=== PATIENT | female | born 1990 | race Caucasian/White ===

== ENCOUNTER 2024-08-04 19:59 | Emergency (ER) | payer OTHER, SELFPAY ==
--- NOTE | ~2024-08-04 | US_ITS ---
CLINICAL HISTORY: Abdominal pain, DUB, left lower pelvic pain US pelvis transabdominal and transvaginal with Doppler Comparison: None Findings: Transabdominal scanning performed for overall anatomy. Transvaginal scanning performed for additional detail. Anteverted uterus is 10.5 cm length. Normal myometrium. Endometrium 11 mm thickness. Right ovary 2.8 x 1.0 x 1.4 cm. Corresponds to a volume of 2.1 mL. Left ovary 2.0 x 1.0 x 2.1 cm., corresponds to a volume of 2.2 mL. History of left fallopian tube removal. Normal color Doppler with arterial/venous spectral tracing of both ovaries. No free fluid. IMPRESSION: 1. Unremarkable pelvic ultrasound with no evidence of ovarian torsion. This document has been electronically signed by: Blanca Brink MD on 08/04/2024 22:58:19
[2024-08-04 20:02] VITALS: BP 141/83; PULSE 85; RESP 18; TEMP 36.5; O2SAT 98; BMI 39.9
--- NOTE | 2024-08-04 20:09 | ED_ITS ---
HPI - General Adult General Chief complaint: Vaginal Bleeding Stated complaint: Back and abdominal pain Time Seen by Provider: 08/04/24 21:03 History of Present Illness ED Provider: Dr. Patel HPI narrative: 34 y/o F patient; without significant PMH; presents from home reporting abnormal uterine bleeding. The patient states she finished her menstrual cycle 07/26. The cycle had started approx 4 days earlier than expected. This morning she started with vaginal spotting that got heavier throughout the day. Associated with a lower abdominal/back pain. The patient tried Advil and a hot bath for symptom management at home. She is concerned that she feels like she is almost passing out due to her symptoms. She otherwise denies: fever or chills, chest pain, SOB, cough/congestion, diarrhea. She states her menstrual cycle is usually on time and lasts 4 - 5 days. She denies recent weight loss. She does report increased stress from loss of her job approx 1 week ago. Related Data Allergies Allergy/AdvReac Type Severity Reaction Status Date / Time ethinyl estradiol Allergy Shortness Verified 08/04/24 20:06 [From Norethin 1/35E (21)] of Breath norethindrone Allergy Shortness Verified 08/04/24 20:06 [From Norethin 1/35E (21)] of Breath Review of Systems 2 Review of Systems: Yes all other systems are reviewed and are negative PMFSH Past Medical History Attestation statement: The following information was validated with the patient. Source: old records reviewed Physical Exam ED Vital Signs: Vital Signs - 24 hr 08/04/24 20:02 08/04/24 20:30 08/04/24 22:00 Temperature 97.7 F 98.1 F 97.9 F Pulse Rate 85 84 74 Respiratory Rate 18 16 16 Blood Pressure 141/83 H 141/81 H 110/65 Pulse Oximetry 98 99 95 Oxygen Delivery Method Room Air Room Air Room Air 08/04/24 23:43 08/04/24 23:46 Temperature 97.9 F 97.9 F Pulse Rate 72 72 Respiratory Rate 16 16 Blood Pressure 118/83 118/83 Pulse Oximetry 98 98 Oxygen Delivery Method Room Air Room Air BMI result Body Mass Index 39.9 Patient is afebrile and hemodynamically stable. Const General: cooperative and no acute distress HENMT Head: Yes normal to inspection and Yes atraumatic Eyes General: appearance normal, both eyes and all related structures Pupils: Equal, round and reactive pupils present EOM: EOMs intact bilaterally Neck Neck: Yes normal visual inspection, Yes full ROM, Yes supple and No tender Chest Chest palpation & inspection: normal inspection of the chest and normal palpation of entire chest wall Resp Effort & Inspection: normal respiratory effort, able to speak in complete sentences, no cough and no respiratory distress Auscultation: clear to auscultation bilaterally Cardio Rate: regular rate Rhythm: regular rhythm Peripheral pulses: Peripheral pulses 2+ throughout GI Inspection: Yes normal to inspection, No Abdominal wall edema and No distended Palpation (GI): Soft to palpation, not firm, nontender, no guarding and not rigid Auscultation: normal bowel sounds Back/Spine/Pelvis Back: No back tenderness Neuro Cranial nerves: Yes Equal, round and reactive pupils present Course Course Course Narrative: RME: 34-year-old female presents to ED for lower abdominal pain, back pain, and vaginal spotting. Patient states her. Finish couple of days ago now she is bleeding again. Patient has history of ectopic . Labs UA ordered Reevaluation(s) Reevaluation #1: Patient is afebrile and hemodynamically stable. Reviewed triage work up and added US Pelvis. Labs reviewed. No leukocytosis or significant anemia. Beta Hcg negative. UA without evidence of cystitis. US Pelvis unremarkable for acute abnormalities. Received Toradol 30mg IM for pain control. Recommended patient follow up with her OBGYN on Monday for a routine appointment. Recommended high dose ibuprofen for the next 72 hours to help with bleeding control. Plan: Discharge to home with OBGYN follow up Return precautions given Medications Administered Discontinued Medications Generic Name Dose Route Start Last Admin Trade Name Freq PRN Reason Stop Dose Admin Ketorolac Tromethamine 30 mg 08/04/24 21:04 08/04/24 21:13 Ketorolac Tromethamine 30 Mg/Ml Vial IM 08/04/24 21:05 30 mg ONCE ONE Administration Medical Decision Making Lab Data 08/04/24 20:16 08/04/24 20:16 Labs: Lab Results 08/04/24 08/04/24 Range/Units 20:16 20:19 WBC 6.9 (4.8-10.8) X10*3/uL RBC 4.88 (4.20-5.50) X10*6/uL Hgb 13.0 (12.0-16.0) g/dl Hct 39.3 (37.0-47.0) % MCV 80.5 (80.0-98.0) fL MCH 26.6 L (27.0-33.0) pg MCHC 33.1 (31.0-35.0) g/dl RDW 14.1 (11.0-16.0) % Plt Count 343 (160-400) X10*3/uL MPV 9.4 (9.4-12.3) fL Immature Gran % (Auto) 0.1 (0.0-0.4) % Neut % (Auto) 61.3 (45-73) % Lymph % (Auto) 30.6 (20-40) % [place] % (Auto) 6.6 (2-11) % Eos % (Auto) 1.0 (0-4) % Baso % (Auto) 0.4 (0-2) % Lymph # (Auto) 2.1 (1.2-4.9) X10*3/uL [place] # (Auto) 0.5 (0.1-1.2) X10*3/uL Eos # (Auto) 0.1 (0.0-0.4) X10*3/uL Baso # (Auto) 0.0 (0.0-0.2) X10*3/uL Abs Immat Gran (auto) 0.01 (0.00-0.03) X10*3/uL Absolute Neuts (auto) 4.2 (2.0-8.3) x10*3/uL Absolute Nucleated RBC 0.000 (0.0-0.012) X10*3/uL Nucleated RBC % (auto) 0.0 (0.0-0.2) /100WBC PT 10.9 (10.9-12.4) SEC INR 0.9 (0.9-1.1) APTT 28.4 (26.0-36.8) SEC Sodium 140 (135-145) mmol/L Potassium 4.0 (3.3-5.1) mmol/L Chloride 103 (96-108) mmol/L Carbon Dioxide 27 (22-29) mmol/L Anion Gap 14 (12-20) BUN 11 (9-16) mg/dL Creatinine 0.74 (0.5-1.4) mg/dL Estim Creat Clear Calc 128.9 Estimated GFR > 60 Random Glucose 164 H (60-115) mg/dL Calcium 9.3 (8.4-10.2) mg/dL Total Bilirubin 0.4 (0.0-1.0) mg/dL AST 29 (5-31) U/L ALT 23 (0-31) U/L Alkaline Phosphatase 93 (39-117) U/L Total Protein 7.2 (6.5-8.0) g/dL Albumin 4.1 (3.5-5.0) g/dL Beta HCG, Quant 12 mIU/mL Urine Color Yellow Urine Appearance Clear Urine pH 6.0 (5.0-9.0) Ur Specific [place] 1.020 (1.005-1.025) Urine Protein Negative (Neg-Trace) mg/dL Urine Glucose (UA) Negative (Negative) mg/dL Urine Ketones Negative (Negative) mg/dL Urine Blood Large (3+) H (Negative) Urine Nitrite Negative (Negative) Ur Leukocyte Esterase Negative (Negative) Urine RBC >20 H (0-2) /HPF Urine WBC 0-5 (0-5) /HPF Ur Squamous Epith Cells 0-2 (0-2) /HPF Urine Bacteria None Seen (None Seen) Hyaline Casts 0-2 (0-2) /LPF Urine Test NEGATIVE (NEGATIVE) Radiology Impression Discussion of test interpretation with radiology: I have reviewed the radiologist's reading. Radiologist Impression: CLINICAL HISTORY: Abdominal pain, DUB, left lower pelvic pain US pelvis transabdominal and transvaginal with Doppler Comparison: None Findings: Transabdominal scanning performed for overall anatomy. Transvaginal scanning performed for additional detail. Anteverted uterus is 10.5 cm length. Normal myometrium. Endometrium 11 mm thickness. Right ovary 2.8 x 1.0 x 1.4 cm. Corresponds to a volume of 2.1 mL. Left ovary 2.0 x 1.0 x 2.1 cm., corresponds to a volume of 2.2 mL. History of left fallopian tube removal. Normal color Doppler with arterial/venous spectral tracing of both ovaries. No free fluid. IMPRESSION: 1. Unremarkable pelvic ultrasound with no evidence of ovarian torsion. This document has been electronically signed by: Blanca Brink MD on 08/04/2024 22:58:19 Discharge Plan Discharge Clinical Impression: Dysfunctional uterine bleeding Patient Disposition: Home, Self-Care Instructions: Dysfunctional Uterine Bleeding (ED) Additional Instructions: As we discussed, you were seen in the emergency department today for dysfunctional uterine bleeding. Your lab work and US Pelvis were reassuring. We discussed taking ibuprofen 600mg every 6 hours for the next 72 hours. Making sure to eat 30min prior to taking the medication to prevent stomach ulcers. This should help to decrease the severity of the bleeding and cramping. Please call your primary doctor and OBGYN on Monday to discuss your recent emergency department visit and for re-evaluation. Interventions: ED Discharge Assessment Last Done: 08/04/24 23:46 Discharge Date/Time: 08/04/24 23:47 Print Language: Japanese
[2024-08-04 20:20] LABS: MANUAL DIFF FLAG NO
[2024-08-04 20:21] LABS: Basophils Percent Auto 0.4 % (0-2); Eosinophils Absolute Auto 0.1 X10*3/uL (0.0-0.4); Hematocrit 39.3 % (37.0-47.0); Imm Gran Abs Auto 0.01 X10*3/uL (0.00-0.03); Imm Gran Pct Auto 0.1 % (0.0-0.4); Lymphocytes Absolute Auto 2.1 X10*3/uL (1.2-4.9); Lymphocytes Percent Auto 30.6 % (20-40); Mean Corpuscular HGB Conc 33.1 g/dl (31.0-35.0); Mean Corpuscular Hemoglobin 26.6 pg (27.0-33.0); Mean Corpuscular Volume 80.5 fL (80.0-98.0); Mean Platelet Volume 9.4 fL (9.4-12.3); Monocytes Absolute Auto 0.5 X10*3/uL (0.1-1.2); Monocytes Percent Auto 6.6 % (2-11); Neutrophils Absolute Auto 4.2 x10*3/uL (2.0-8.3); Neutrophils Percent Auto 61.3 % (45-73); Platelet Count 343 X10*3/uL (160-400); Red Blood Count 4.88 X10*6/uL (4.20-5.50); Red Cell Distribution Width 14.1 % (11.0-16.0); White Blood Count 6.9 X10*3/uL (4.8-10.8)
[2024-08-04 20:26] LABS: UPreg QC Valid YES; Urine Pregnancy NEGATIVE (NEGATIVE)
[2024-08-04 20:27] LABS: Appearance Urine Clear; Color Urine Yellow; Glucose Urine UA Negative (Negative); Leukocyte Esterase Urine Negative (Negative); Nitrite Urine Negative (Negative); UMIC TRIGGER UACC YES; Urine Blood Large (3+) (Negative); Urine Ketones Negative (Negative); Urine Protein Negative (Neg-Trace)
[2024-08-04 20:28] LABS: INTERNATIONAL NORM RATIO 0.9 (0.9-1.1); Prothrombin Time 10.9 SEC (10.9-12.4)
--- OUTSIDE RECORDS SUMMARY | 2024-08-04 20:28 | XMS_ITS | Patient Health Record ---
Author Organization [facility], [facility] Address [address] [place] [address] Care Team Providers Care Loadmaster Name Role Phone Huey Marin Primary Care Provider Unavail able Blaise Palacio Unavailable [phone] Allergies No Known Allergies Results Component Value Reference Range Notes MR-Brain (C-/C+) CPT 07575 Reviewed date:08/22/2023 12:50:56 PM Interpretation: Performing Lab: Notes/Report: [facility] Accession Number: [id number] Patient Name: Mindy Luz Date of : 1990 Date of Exam: 08-21-2023 Referring Physician: Blaise Palacio [facility], [address], [address] [place], [place] [address] Exam: MR Brain (C-/C+) CPT 96513 Room Description: [facility] 3T EXAMINATION: MRI brain without and with contrast PHARMACEUTICAL: 0.1 mmol/kg of Gadolinium administered intravenously. TECHNIQUE: Multiplanar and multisequence MRI of brain performed without and with intravenous administration of gadolinium. Sequences obtained include: Axial: T2 with fat suppression, FLAIR, DWI with ADC mapping, T1 and GRE/susceptibility images. Sagittal: T1 Postgadolinium sequences: Axial 3D gradient T1, Coronal T1 CLINICAL INFORMATION: Lightheadedness COMPARISON: CT 01/24/2023 FINDINGS: Brain parenchyma is normal in signal intensity. No abnormal parenchymal or meningeal enhancement. There is no acute infarct, hemorrhage, mass effect or midline shift. Ventricles and extra-axial spaces are proportionate and age appropriate. Craniocervical junction, sellar/parasellar structures and bilateral orbits are within normal limits. Scattered trace paranasal sinus mucosal thickening. Bilateral mastoid air cells are essentially clear. IMPRESSION: No acute intracranial abnormality. No abnormal intracranial enhancement. If this radiology report contains a blank impression section, it is an incomplete radiology report. Please contact the interpreting radiologist or applicable radiology division as soon as possible to obtain the completed interpretation. Workstation ID: [id number] Electronically Signed By: Vidya Villanueva MD [facility] Accession Number: [id number] Patient Name: Mindy Luz Date of : 1990 Date of Exam: 08-21-2023 Referring Physician: Blaise Palacio [facility], [address], [place] [address] Exam: MR Brain (C-/C+) CPT 64954 Room Description: [facility] 3T EXAMINATION: MRI brain without an d with contrast PHARMACEUTICAL: 0.1 mmol/kg of Gadol inium administered intravenously. TECHNIQUE: Multiplanar and mult isequence MRI of brain performed without and with intravenous administ ration of gadolinium. Sequences obtained include: Axial: T2 with fat s uppression, FLAIR, DWI with ADC mapping, T1 and GRE/susceptibility images. Sagittal: T1 Postgadolinium seque nces: Axial 3D gradient T1, Coronal T1 CLINICAL INFORMATION: Lightheadedness COMPARISON: CT 01/24/2023 FINDINGS: Brain parenchyma is normal in signal intensity. No abnormal parenchymal or meningeal enhancement. There is no acute in farct, hemorrhage, mass effect or midline shift. Ventricles and extra -axial spaces are proportionate and age appropriate. Craniocervical junct ion, sellar/parasellar structures and bilateral orbits are within normal limits. Scattered trace para nasal sinus mucosal thickening. Bilateral mastoid air cells are essentially clear. IMPRESSION: No acute intracrania l abnormality. No abnormal intracranial enhancement. If this radiology re port contains a blank impression section, it is an incomplete radiology report. Please contact the interpreting radiologist or applicable radiology division as soon as possible to obtain the completed interpretation. Workstation ID: [id number] Electronically Roxanna d By: Vidya Villanueva MD Reason For Referral No Information Medications Medication SIG (Take, Route, Frequency, Duration) Notes Start Date End Date Status metFORMIN HCl 500 MG 1 tablet with a deanne l Orally Once a day Active Multivitamin - 1 tablet Orally Once a day Active Famotidine 20 MG Oral for 15 Days Active Lisinopril 5 MG 1/2 tablet Oral Once a day for 90 days Active Atorvastatin Calcium 20 MG 1 tablet Orally Once a day Not-Taking Problems Problem Type SNOMED Code ICD Code Onset Dates Problem Status W/U Status Risk Notes Problem Type II diabetes mellitus without complication (235300506) Diabetes (E11.9) Active confirmed Problem Hypertension (40980347) Hypertension (I10) Active confirmed Problem Hyperlipidemia (01182376) Hyperlipidemia (E78.5) Active confirmed Problem [id number] Episodic migrain e (G43.909) Active confirmed Vital Signs Heart Rate 86 /min 08/28/2023 Oximetry 98 % 08/28/2023 Blood pressure diastolic 70 mm Hg 08/28/2023 Height 65 in 08/28/2023 Blood pressure systolic 106 mm Hg 08/28/2023 Weight 234 lbs 08/28/2023 BMI 38.94 kg/m2 08/28/2023 Encounters Encounter Location Date Provider Diagnosis [address] [address] 08/28/2023 Blaise Naveedagmusa Episodic lightheadedness R42 and Episodic migraine G43.909 Assessments Encounter Date Diagnosis (ICD Code) Assessment Notes Treatment Notes Treatment Clinical Notes Section Notes 08/28/2023 Episodic lightheadedness (ICD-10 - R42) 33-year-old right-handed woman with a past medical history of hypertension, hyperlipidemia, diabetes mellitus presenting for neurology evaluation for episodes of lightheadedness, feeling off and heart palpitations. Neurologic exam is reassuring with no focal neurologic deficits. Differential diagnosis for these episodes should include focal seizure activity. However, the fact that she believes her palpitations were noted on a heart monitor during emergency department visit would argue slightly more for a cardiac etiology. I am glad that she is planning on continued cardiac evaluation for these episodes. For evaluation of potential neurologic cause an MRI brain was performed with no intracranial abnormalities and an EEG was performed with no epileptiform discharges or electrographic seizures. She was encouraged to continue to follow with cardiology and if she has captured events on her heart monitor and is deemed to not be due to a cardiac etiology we could continue further evaluation for potential seizure activity. She also complained of some menstrual migraines which been ongoing for the last few months and getting worse. I provided her with information on [id number] supplements which can be helpful for migraine. If this is not efficient and she would like to discuss prescription medications for migraine and I will be happy to see her in clinic in the near future. All questions were answered the patient's satisfaction. 08/28/2023 Episodic migraine (ICD-10 - G43.909) 33-year-old right-handed woman with a past medical history of hypertension, hyperlipidemia, diabetes mellitus presenting for neurology evaluation for episodes of lightheadedness, feeling off and heart palpitations. Neurologic exam is reassuring with no focal neurologic deficits. Differential diagnosis for these episodes should include focal seizure activity. However, the fact that she believes her palpitations were noted on a heart monitor during emergency department visit would argue slightly more for a cardiac etiology. I am glad that she is planning on continued cardiac evaluation for these episodes. For evaluation of potential neurologic cause an MRI brain was performed with no intracranial abnormalities and an EEG was performed with no epileptiform discharges or electrographic seizures. She was encouraged to continue to follow with cardiology and if she has captured events on her heart monitor and is deemed to not be due to a cardiac etiology we could continue further evaluation for potential seizure activity. She also complained of some menstrual migraines which been ongoing for the last few months and getting worse. I provided her with information on [id number] supplements which can be helpful for migraine. If this is not efficient and she would like to discuss prescription medications for migraine and I will be happy to see her in clinic in the near future. All questions were answered the patient's satisfaction. Plan Of Treatment No Information Insurance Providers Payer Name Payer Address Payer Phone Subscriber Number Group Number Insured Name Patient Relationship to Insured Coverage Start Date Coverage End Date [facility] [address] [place] [phone] [id number] Mindy Luz Self - patient is the insured Medical (General) History Medical History History ICD Code Hypertension I10 Hyperlipidemia E78.5 Diabetes E11.9 Surgical History Surgery Date(Month/Year) (2) Hospitalization History Reason Date(Month/Year) Internal Bleeding Kidney Stones Child
--- OUTSIDE RECORDS SUMMARY | 2024-08-04 20:29 | XMS_ITS ---
Author Organization [email or web address] Address [address] [address] Care Team Providers Care Ore Charger Name Role Phone Huey Marin Primary Care Provider Unavail able Kofi Palacioin Unavailable [phone] Allergies No Known Allergies Results Component Value Reference Range Notes Basic Metabolic Panel [phone] Reviewed date:07/03/2023 08:48:33 AM Interpretation: Performing Lab: Notes/Report: Electroencephalography (EEG) Reviewed date:07/03/2023 09:53:17 AM Interpretation: Performing Lab: Notes/Report: MR-Brain (C-/C+) CPT 55165 Reviewed date:07/04/2023 11:44:48 AM Interpretation: Performing Lab: Notes/Report: 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 Medications Medication SIG (Take, Route, Frequency, Duration) Notes Start Date End Date Status Famotidine 20 MG Oral for 15 Days Active Lisinopril 5 MG Oral for 90 Days Active Atorvastatin Calcium 20 MG 1 tablet Oral ly Once a day Active metFORMIN HCl 500 MG 1 tablet with a deanne l Orally Once a day Active Problems Problem Type SNOMED Code ICD Code Onset Dates Problem Status W/U Status Risk Notes Problem Hypertension (47150029) Hypertension (I10) Active confirmed Problem Hyperlipidemia (07623370) Hyperlipidemia (E78.5) Active confirmed Problem Type II diabetes mellitus without complication (197974393) Diabetes (E11.9) Active confirmed Vital Signs Blood pressure systolic 124 mm Hg 07/03/19 24 Blood pressure diastolic 84 mm Hg 024 Heart Rate 85 /min 07/03/2023 Height 65 in 07/03/2023 Weight 239 lbs 07/03/2023 BMI 39.77 kg/m2 07/03/2023 Oximetry 98 % 07/03/2023 Encounters Encounter Location Date Provider Diagnosis [address] [address] 07/03/2023 Blaise Palacio Episodic lightheadedness R42 Assessments Encounter Date Diagnosis (ICD Code) Assessment Notes Treatment Notes Treatment Clinical Notes Section Notes 07/03/2023 Episodic lightheadedness (ICD-10 - R42) 33-year-old right-handed [...] episodes. For evaluation of potential neurologic cause we discussed the benefits of pursuing an MRI brain with contrast and EEG for potential seizure activity. She agreed to this and both tests were ordered today. Will plan to follow-up in clinic in approximately 2 months to review the results of testing. A basic metabolic panel was also offered today to evaluate her kidney function prior to receiving contrast. All questions were answered the patient's satisfaction. 07/03/2023 Other 33-year-old right-handed woman with a past medical [...] episodes. For evaluation of potential neurologic cause we discussed the benefits of pursuing an MRI brain with contrast and EEG for potential seizure activity. She agreed to this and both tests were ordered today. Will plan to follow-up in clinic in approximately 2 months to review the results of testing. A basic metabolic panel was also offered today to evaluate her kidney function prior to receiving contrast. All questions were answered the patient's satisfaction. 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 She has been having sensations of her heart skipping a beat and not feeling herself.? Start wtih her feeling super off and like she is going to pass out.? Associated palpitation with floaters in her vision- brightly colored specks in her vision. Lasts a minute or two, but she will feel off for a total of 10-20 minutes.? Afterwards she will feel completely exhausted.? ?Happening once and then typically does not reoccur the same day.? Estimates that the feeling of her heart skipping a beat 4 days a week.? The Off feeling is happening almost every day.? Wondering if it is related to her blood sugars- she has been monitoring her blood sugars at home and they have been varying a lot.? Ranging 110-145 in the morning and can go as low as the low 80's during the day.? No other associated focal neurologic symptoms- no diplopia, slurred speech, focal weakness, numbness, tinging, urinary incontinence, fecal incontinence or tongue bite.? She was evaluated by cardiology including a 1 week holter monitor.? No other cardiac tests have been performed.? Seen in the emergency room for these symptoms with normal EKG, negative d-dimer, and negative troponin.? She tells me that in the emergency room her telemetry did show her palpitations. * ROS:?ROS negative or non-contributory with the exception of what is expressely stated in the HPI above. * Medical History:? * Surgical History:? (2) * Hospitalization/Major Diagno stic Procedure:?Child Kidney Stones Internal Bleeding * Family History:?Father: diab etes, hyperlipedemia, hypertension.?Mother: anxiety.? * Social History:?Drugs/Alcohol:?Caffeine?Intake:?none.?Do you smoke marijuana?: Denies. Do you drink alcohol?: No. ???Non-Smoker. * Medications:?TakingmetFORMIN HCl 500 MG Tablet 1 tablet with a meal Orally Once a day Atorvastatin Calcium 20 MG Tablet 1 tablet Orally Once a day Lisinopril 5 MG Tablet Oral Famotidine 20 MG Tablet Oral Medication List reviewed and reconciled with the patientTaking metFORMIN HCl 500 MG Tablet 1 tablet with a meal Orally Once a day Taking Atorvastatin Calcium 20 MG Tablet 1 tablet Orally Once a day Taking Lisinopril 5 MG Tablet Oral Taking Famotidine 20 MG Tablet Oral Medication List reviewed and reconciled with the patient * Allergies:?N.K.D.A.no[Allerg ies Verified] Objective: * Vitals:?HR:85/min, BP:124/84 mm Hg, Wt:239lbs, BMI:39.77Index, Ht: 65 in, Oxygen sat %:98%, Ht-cm: 165.1 cm, Wt-k.41 kg. * Examination: ???Ophthalmology: ?FUNDI:?Sharp disc margins without papilledema or pallor.?General Examination: ?GENERAL APPEARANCE:?Adult female casually dressed. Appears stated age. Comfortable, in no acute distress.?HEART:?no murmurs, regular rate and rhythm, S1, S2 normal.?LUNGS:?clear to auscultation bilaterally.?Neurological: ?Cortical Functions:?Awake, alert and oriented to self, place, date and situation. Comprehension and language intact, general knowledge and judgement appears normal. No aphasia or neglect.?CRANIAL NERVES:?Visual mckeon full to confrontation. Pupils equal, round and reactive to light bilaterally. No afferrent pupil defect. EOM full with normal pursuit and saccade. No ptosis or nysagmus noted. Smile, eyebrow raise, and eye closure symmetric. Normal sensation in V1-V3 bilaterally to light touch. Hearing normal to voice and finger rub bilaterally. Tongue protrusion and palate elevation symmetric. No fasciculations or atrophy of the tongue. Shoulder shrug and sternocleidomastoid strength full bilaterally.?MOTOR STRENGTH:?Normal muscle bulk and tone. No cogwheeling, rigidity or spasticity. No pronator drift. 5/5 strength in bilateral deltoid, triceps, biceps, wrist extension, wrist flexion, and finger abduction. 5/5 strength in bilateral hip flexors, knee flexors, knee extensors, ankle dorsiflexion and plantarflexion.?SENSORY:?Normal sensation to light touch, temperature, and vibration in all four extremities. Normal proprioception when touching nose with eyes closed.?REFLEXES:?2+ and symmetric bilateral biceps, triceps, and brachioradialis. No Marie's sign. 2+ and symmetric bilateral patellar and achilles. No cross adductors. Plantar response is flexor bilaterally.?CEREBELLAR SIGNS:?Normal ohixpp-jzgl-varsnr and heel-strickland testing bilaterally.?GAIT AND STATION:?Normal gait and station. Able to perform toe-walking, heel-walking, and tandem gait Rhomberg negative.?INVOLUNTARY MOVEMENTS:? None seen.? Assessment: * Assessment: 1.?Episodic lightheadedness - R42 (Primary)? 33-year-old right-handed wom winnie with a past medical history of hypertension, [...] episodes. For evaluation of potential neurologic cause we discussed the benefits of pursuing an MRI brain with contrast and EEG for potential seizure activity. She agreed to this and both tests were ordered today. Will plan to follow-up in clinic in approximately 2 months to review the results of testing. A basic metabolic panel was also offered today to evaluate her kidney function prior to receiving contrast. All questions were answered the patient's satisfaction. Plan: * Treatment: ?Imaging: MR-Brain (C-/C+) CPT 86162* seizure protocol * * Procedure Codes:? * Follow Up:?2 months * * Sign off status: Completed true * Provider:?Blaise Palacio MD Date:?07/02 Generated for Payton recinos/Nicko/Bryan on:?08/04/2024 08:28 PM EDT History and Physical Notes * HPI (History of Present Illness) Category Sub-Category Detail Notes Category Not es CS Ms Luz is a 33 year old right-handed womanw ith a past medical history of diabets mellitus, hypertension, hyperlipidemia who was referred to the [facility] by her primary care provider for evaluation of sympotms of lightheadedness. She has been having sensations of her heart skipping a beat and not feeling herself. Start wtih her feeling super off and like she is going to pass out. Associated palpitation with floaters in her vision- brightly colored specks in her vision. Lasts a minute or two, but she will feel off for a total of 10-20 minutes. Afterwards she will feel completely exhausted. Happening once and then typically does not reoccur the same day. Estimates that the feeling of her heart skipping a beat 4 days a week. The Off feeling is happening almost every day. Wondering if it is related to her blood sugars- she has been monitoring her blood sugars at home and they have been varying a lot. Ranging 110-145 in the morning and can go as low as the low 80's during the day. No other associated focal neurologic symptoms- no diplopia, slurred speech, focal weakness, numbness, tinging, urinary incontinence, fecal incontinence or tongue bite. She was evaluated by cardiology including a 1 week holter monitor. No other cardiac tests have been performed. Seen in the emergency room for these symptoms with normal EKG, negative d-dimer, and negative troponin. She tells me that in the emergency room her telemetry did show her palpitations. Examination Category Sub-Category Detail Notes Category Not es Neurological Cortical Functions: Awake, alert and oriented to self, place, date and situation. Comprehension and language intact, general knowledge and judgement appears normal. No aphasia or neglect CRANIAL NERVES: Visual mckeon full to confrontation. Pupils equal, round and reactive to light bilaterally. No afferrent pupil defect. EOM full with normal pursuit and saccade. No ptosis or nysagmus noted. Smile, eyebrow raise, and eye closure symmetric. Normal sensation in V1-V3 bilaterally to light touch. Hearing normal to voice and finger rub bilaterally. Tongue protrusion and palate elevation symmetric. No fasciculations or atrophy of the tongue. Shoulder shrug and sternocleidomastoid strength full bilaterally MOTOR STRENGTH: Normal muscle bulk and tone. No cogwheeling, rigidity or spasticity. No pronator drift. 5/5 strength in bilateral deltoid, triceps, biceps, wrist extension, wrist flexion, and finger abduction. 5/5 strength in bilateral hip flexors, knee flexors, knee extensors, ankle dorsiflexion and plantarflexion SENSORY: Normal sensation to light touch, temperature, and vibration in all four extremities. Normal proprioception when touching nose with eyes closed REFLEXES: 2+ and symmetric bilateral biceps, triceps, and brachioradialis. No Marie's sign. 2+ and symmetric bilateral patellar and achilles. No cross adductors. Plantar response is flexor bilaterally PLANTARS: CEREBELLAR SIGNS: Normal [id number] mary and heel-strickland testing bilaterally GAIT AND STATION: Normal gait and stat ion. Able to perform toe-walking, heel- walking, and tandem gait Rhomberg negative INVOLUNTARY MOVEMENTS: None seen Ophthalmology FUNDI: Sharp disc ranjan ns without papilledema or pallor General Examination GENERAL APPEARANCE: Adult fe male casually dressed. Appears stated age. Comfortable, in no acute distress HEART: no murmurs, regular rate and rhythm, S1, S2 normal LUNGS: clear to auscultatio n bilaterally ABDOMEN:
--- OUTSIDE RECORDS SUMMARY | 2024-08-04 20:29 | XMS_ITS | Data Portability ---
Author Organization [place] - [facility], [facility] Address [address] [facility] [id number] [place] [address] Care Team Providers Care Customer Support Executive Name Role Phone ABDIRASHID SARKAR Primary Care Provider MARTINA AYALA Postulant Assessment No assessment recorded. Plan of Treatment Reminders Order Date Submit Date Provider Last Modified By Organization Details Last Modified Time Details Appointments None recorded. Lab pap, IG + HPV - paps-07-30 neg/HPV pos, 16, 18/45 neg; 07/24/20-ne g/HPV pos, 16, 18/45 neg; 05/09/20162022 023 [facility], [address] [place] [address], [id number] 3 22:12:33 pap, IG + HPV - 07/24/20-PA P-neg/HPV pos, 16,18/45 neg 2021 022 [facility], [address] [place] [address], [id number] 2 04:15:00 Referral None recorded. Procedures None recorded. Surgeries None recorded. Imaging None recorded. Medication Orders Brisdelle 7.5 mg capsule 2022 023 [facility] [place][id number], [address] [place], [address], 3 10:30:08 Patient TargetsNo targets recorded. Patient Instructions Encounter Date Encounter Id Patient Instructions Last Modified By Organization Details Last Modified Time 07/24/2020 [id number] tips to help you stay healthy ssurette Not available 07/24/2020 10:40:25 08/05/2022 [id number] tips to help you stay healthy ssurette Not available 08/05/2022 10:34:25 premenstrual syndrome (PMS): care instructions ssurette Not available 08/05/2022 10:30:06 Reason for Referral None Reported. Results Created Date Observation Date Name Description Value Unit Range Abnormal Flag Note LastModifiedBy Organization Detail LastModifiedTime 07/25/19 21 07/30/2020 pap, IG + HPV mRNA E6/E7 + refle x HPV (16+1 8+45) clinical information: normal Routi ne exam Not Available [facility] [place] [facility] [address], [address], 07/30/2020 11:39:13 07/25/19 21 07/30/2020 pap, IG + HPV mRNA E6/E7 + refle x HPV (16+1 8+45) LMP: normal 07-03 Not Available [facility] [place] [facility] [address], [address], 07/30/2020 11:39:13 07/25/19 21 07/30/2020 pap, IG + HPV mRNA E6/E7 + refle x HPV (16+1 8+45) prev. Pap: normal 05-09 Not Available [facility] [place] [facility] [address], [address], 07/30/2020 11:39:13 07/25/19 21 07/30/2020 pap, IG + HPV mRNA E6/E7 + refle x HPV (16+1 8+45) prev. BX: normal NONE GIVEN Not Available [facility] [place] [facility] [address], [address], 07/30/2020 11:39:13 07/25/19 21 07/30/2020 pap, IG + HPV mRNA E6/E7 + refle x HPV (16+1 8+45) source: normal Cervi x, Endoc ervix Not Available [facility] [place] [facility] [address], [address], 07/30/2020 11:39:13 07/25/19 21 07/30/2020 pap, IG + HPV mRNA E6/E7 + refle x HPV (16+1 8+45) statement of adequacy: normal Satis facto ry for evalu ation . Endoc ervic al/tr ansfo rmati on zone compo nent absen t. Not Available [facility] [address], [address], 07/30/2020 11:39:13 07/25/19 21 07/30/2020 pap, IG + HPV mRNA E6/E7 + refle x HPV (16+1 8+45) interpretati on/result: normal Negat jewel for intra epith elial lesio n or malig bart . Not Available [facility] [address], [address], 07/30/2020 11:39:13 07/25/19 21 07/30/2020 pap, IG + HPV mRNA E6/E7 + refle x HPV (16+1 8+45) comment: normal This Pap test has been evalu ated with compu ter lisa charlotte [employer] . Not Available [facility] [address], [address], 07/30/2020 11:39:13 07/25/19 21 07/30/2020 pap, IG + HPV mRNA E6/E7 + refle x HPV (16+1 8+45) cytotechnolo gist: normal ED, CT( CP) CT scree afshan locat ion: [facility] [address] [place], [place] [phone] Not Available [facility] [place] [facility] 200 [address] [place], [address], 07/30/2020 11:39:13 07/25/19 21 07/30/2020 pap, IG + HPV mRNA E6/E7 + refle x HPV (16+1 8+45) review cytotechnolo gist: normal NSS, CT( CP) CT scree afshan locat ion: [facility] [address], [place] [phone] [facility] [address], [place], [address], 07/30/2020 11:39:13 07/25/19 21 07/30/2020 pap, IG + HPV mRNA E6/E7 + refle x HPV (16+1 8+45) comment EXPLA NATOR Y NOTE: The Pap is a scree afshan test for cervi john cance r. It is not a diagn ostic test and is subje ct to false negat jewel and false posit jewel resul ts. It is most relia ble when a satis facto ry sampl e, regul iraj obtai aura, is submi tted with relev ant clini john findi ngs and histo ry, and when the Pap resul t is evalu ated along with histo sabrina and curre nt clini john infor matio n. Not Available [facility] [address], [place], [address], 07/30/2020 11:39:13 07/25/19 21 07/30/2020 pap, IG + HPV mRNA E6/E7 + refle x HPV (16+1 8+45) HPV MRNA E6/E7 Detect ed not detect ed abnormal Metho dolog y: Trans cript ion-M ediat ed Ampli ficat ion This assay detec ts E6/E7 viral messe nger RNA (mRNA ) from 14 high- risk HPV types (16,1 8,31, 33,35 ,39,4 5,51, 52,56 ,58,5 9,66, 68). The chayo tical perfo rmanc e dar cteri stics of this assay have been deter mined by [employer]. The modif icati ons have not been clear ed or appro hesham by the FDA. This assay has been valid ated pursu ant to the CLIA regul ation s and is used for clini john purpo ses. For addit ional infor james hollis e refer to http: //[facility] nicolasa mancia.[place] stdia gnost ics.c om/fa q/FAQ 129v1 (This link if provi ded for infor trina mancia/ educa wayne l purpo ses only. ) Not Available [facility] [place] [facility] [address], [address], 07/30/2020 11:39:13 07/25/19 21 07/30/2020 HPV DNA, genot ypes 16+18 , genit al HPV 16 RNA NOT DETECT ED not detect ed Not Available [facility] [place] [facility] [address], [address], 07/30/2020 11:39:13 07/25/19 21 07/30/2020 HPV DNA, genot ypes 16+18 , genit al HPV 18/45 RNA NOT DETECT ED not detect ed normal Metho dolog y: Trans cript ion Media charlotte Ampli ficat ion The chayo tical perfo rmanc e dar cteri stics of this assay have been deter mined by [employer] o[employer]. The modif icati ons have not been clear ed or appro hesham by the FDA. This assay has been valid ated pursu ant to the CLIA regul ation s and is used for clini john purpo ses. Not Available [facility] [place] [facility] [address], [address], 07/30/2020 11:39:13 07/31/19 22 08/05/2021 THINP REP TIS PAP AND HPV MRNA E6/E7 WITH REFLE X TO HPV 16,18 /45 clinical information: normal None given Not Available [facility] [address], [place], [address], 08/05/2021 04:15:00 07/31/19 22 08/05/2021 THINP REP TIS PAP AND HPV MRNA E6/E7 WITH REFLE X TO HPV 16,18 /45 LMP: normal Not Available [facility] [address], [place], [address], 08/05/2021 04:15:00 07/31/19 22 08/05/2021 THINP REP TIS PAP AND HPV MRNA E6/E7 WITH REFLE X TO HPV 16,18 /45 prev. Pap: normal Not Available [facility]- [address], [place], [address], 08/05/2021 04:15:00 07/31/19 22 08/05/2021 THINP REP TIS PAP AND HPV MRNA E6/E7 WITH REFLE X TO HPV 16,18 /45 prev. BX: normal NONE GIVEN Not Available [facility]- [address], [place], [address], 08/05/2021 04:15:00 07/31/19 22 08/05/2021 THINP REP TIS PAP AND HPV MRNA E6/E7 WITH REFLE X TO HPV 16,18 /45 source: normal Cervi x Not Available [facility] [place] [address], [place], [address], 08/05/2021 04:15:00 07/31/19 22 08/05/2021 THINP REP TIS PAP AND HPV MRNA E6/E7 WITH REFLE X TO HPV 16,18 /45 statement of adequacy: normal Satis facto ry for evalu ation . Endoc ervic al/tr ansfo rmati on zone compo nent absen t. Not Available [facility], [place], [address], 08/05/2021 04:15:00 07/31/19 22 08/05/2021 THINP REP TIS PAP AND HPV MRNA E6/E7 WITH REFLE X TO HPV 16,18 /45 interpretati on/result: normal Negat jewel for intra epith elial lesio n or malig bart . Not Available [facility] [place] [facility] [address], [place], [address], 08/05/2021 04:15:00 07/31/19 22 08/05/2021 THINP REP TIS PAP AND HPV MRNA E6/E7 WITH REFLE X TO HPV 16,18 /45 comment: normal This Pap test has been evalu ated with andrew wilson techn ology . Not Available [facility] [place] [facility] [address], [place], [address], 08/05/2021 04:15:00 07/31/19 22 08/05/2021 THINP REP TIS PAP AND HPV MRNA E6/E7 WITH REFLE X TO HPV 16,18 /45 cytotechnolo gist: normal ED, CT( CP) CT scree afshan locat ion: [facility] [address] [place], [place] [phone] Not Available [facility] [place] [facility] [address], [place], [address], 08/05/2021 04:15:00 07/31/19 22 08/05/2021 THINP REP TIS PAP AND HPV MRNA E6/E7 WITH REFLE X TO HPV 16,18 /45 review cytotechnolo gist: normal JNA, CT( CP) CT scree afshan locat ion: [facility] [address] [place], [place] [phone] Not Available [facility] [address], [place], [address], 08/05/2021 04:15:00 07/31/19 22 08/05/2021 THINP REP TIS PAP AND HPV MRNA E6/E7 WITH REFLE X TO HPV 16,18 /45 comment EXPLA NATOR Y NOTE: The Pap is a scree afshan test for cervi john cance r. It is not a diagn ostic test and is subje ct to false negat jewel and false posit jewel resul ts. It is most relia ble when a satis facto ry sampl e, regul iraj obtai aura, is submi tted with relev ant clini john findi ngs and histo ry, and when the Pap resul t is evalu ated along with histo sabrina and curre nt clini john infor trina mancia. Not Available [facility] [address], [address], 08/05/2021 04:15:00 07/31/19 22 08/05/2021 THINP REP TIS PAP AND HPV MRNA E6/E7 WITH REFLE X TO HPV 16,18 /45 HPV MRNA E6/E7 Detect ed not detect ed abnormal Metho dolog y: Trans cript ion-M ediat ed Ampli ficat ion This assay detec ts E6/E7 viral messe nger RNA (mRNA ) from 14 high- risk HPV types (16,1 8,31, 33,35 ,39,4 5,51, 52,56 ,58,5 9,66, 68). The chayo tical perfo rmanc e dar cteri stics of this assay have been deter mined by [facility]. The modif icati ons have not been clear ed or appro hesham by the FDA. This assay has been valid ated pursu ant to the CLIA regul ation s and is used for clini john purpo ses. For addit ional roderickr james hollis refer to http: //maria g [facility]oley stdia gnost ics.c om/fa q/FAQ 129v1 (This link if provi ded for infor trina mancia/ educa wayne l purpo ses only. ) Not Available [facility] [address], [address], 08/05/2021 04:15:00 07/31/19 22 08/05/2021 HPV GENOT YPES 16,18 /45 HPV 16 RNA NOT DETECT ED not detect ed Not Available [facility] [place] [address] [place], [place], [address], 08/05/2021 04:15:00 07/31/19 22 08/05/2021 HPV GENOT YPES 16,18 /45 HPV 18/45 RNA NOT DETECT ED not detect ed normal Metho dolog y: Trans cript ion Media charlotte Ampli ficat ion The chayo tical perfo rmanc e dar cteri stics of this assay have been deter mined by [facility]. The modif icati ons have not been clear ed or appro hesham by the FDA. This assay has been valid ated pursu ant to the CLIA regul ation s and is used for clini john purpo ses. Not Available [facility] [place] [address] [place], [place], [address], 08/05/2021 04:15:00 08/06/19 23 08/15/2022 THINP REP TIS PAP AND HPV MRNA E6/E7 WITH REFLE X TO HPV 16,18 /45 clinical information: normal None given Not Available [address] [place], [place], [address], 08/15/2022 22:12:33 08/06/19 23 08/15/2022 THINP REP TIS PAP AND HPV MRNA E6/E7 WITH REFLE X TO HPV 16,18 /45 LMP: normal 07/09 Not Available [facility] [address] [place], [place], [address], 08/15/2022 22:12:33 08/06/19 23 08/15/2022 THINP REP TIS PAP AND HPV MRNA E6/E7 WITH REFLE X TO HPV 16,18 /45 prev. Pap: normal 07/30 Not Available [facility] [place] [facility] [address] [place], [address], 08/15/2022 22:12:33 08/06/19 23 08/15/2022 THINP REP TIS PAP AND HPV MRNA E6/E7 WITH REFLE X TO HPV 16,18 /45 prev. BX: normal NONE GIVEN Not Available [facility] [place] [facility] [address], [place], [address], 08/15/2022 22:12:33 08/06/19 23 08/15/2022 THINP REP TIS PAP AND HPV MRNA E6/E7 WITH REFLE X TO HPV 16,18 /45 source: normal Cervi x, Endoc ervix Not Available [facility] [place] [facility] [address], [place], [address], 08/15/2022 22:12:33 08/06/19 23 08/15/2022 THINP REP TIS PAP AND HPV MRNA E6/E7 WITH REFLE X TO HPV 16,18 /45 statement of adequacy: normal Satis facto ry for evalu ation . Endoc ervic al/tr ansfo rmati on zone compo nent absen t. Not Available [facility] [address], [place], [address], 08/15/2022 22:12:33 08/06/19 23 08/15/2022 THINP REP TIS PAP AND HPV MRNA E6/E7 WITH REFLE X TO HPV 16,18 /45 interpretati on/result: normal Negat jewel for intra epith elial lesio n or malig bart . Not Available [facility] [place] [facility] [address], [place], [address], 08/15/2022 22:12:33 08/06/19 23 08/15/2022 THINP REP TIS PAP AND HPV MRNA E6/E7 WITH REFLE X TO HPV 16,18 /45 comment: normal This Pap test has been evalu ated with andrew wilson techn ology . Not Available [facility] [address], [address], 08/15/2022 22:12:33 08/06/19 23 08/15/2022 THINP REP TIS PAP AND HPV MRNA E6/E7 WITH REFLE X TO HPV 16,18 /45 cytotechnolo gist: normal [place], CT( CP) CT scree afshan locat ion: [facility] [address] [place], [place] [phone] [facility] [address], [address], 08/15/2022 22:12:33 08/06/19 23 08/15/2022 THINP REP TIS PAP AND HPV MRNA E6/E7 WITH REFLE X TO HPV 16,18 /45 review cytotechnolo gist: normal SXA, CT( CP) CT scree afshan locat ion: [facility] [address] [place], [place] [phone] [facility] [address], [address], 08/15/2022 22:12:33 08/06/19 23 08/15/2022 THINP REP TIS PAP AND HPV MRNA E6/E7 WITH REFLE X TO HPV 16,18 /45 comment EXPLA NATOR Y NOTE: The Pap is a scree afshan test for cervi john cance r. It is not a diagn ostic test and is subje ct to false negat jewel and false posit jewel resul ts. It is most relia ble when a satis facto ry sampl e, regul iraj obtai aura, is submi tted with relev ant clini john findi ngs and histo ry, and when the Pap resul t is evalu ated along with histo sabrina and curre nt clini john infor matio n. Not Available [facility] [place] [facility] [address] [place], [address], 08/15/2022 22:12:33 08/06/19 23 08/15/2022 THINP REP TIS PAP AND HPV MRNA E6/E7 WITH REFLE X TO HPV 16,18 /45 HPV MRNA E6/E7 Detect ed not detect ed abnormal Metho dolog y: Trans cript ion-M ediat ed Ampli ficat ion This assay detec ts E6/E7 viral messe nger RNA (mRNA ) from 14 high- risk HPV types (16,1 8,31, 33,35 ,39,4 5,51, 52,56 ,58,5 9,66, 68). Cervi john sourc es are requi red for HPV testi ng. If a vagin al sourc e from a patie nt who has had a total hyste recto my with remov al of cervi x was submi tted, pleas e conta ct the testi ng labor atory for alter nativ e testi ng optio ns. For addit ional infor james hollis e refer to http: //[facility] nicolasa mancia.[place] stdia gnost ics.c om/fa q/FAQ 129v1 (This link if provi ded for infor trina mancia/ petey thompson purpo ses only. ) Not Available [facility] [place] [facility] [address], [address], 08/15/2022 22:12:33 08/06/19 23 08/15/2022 HPV GENOT YPES 16,18 /45 HPV 16 RNA NOT DETECT ED not detect ed Not Available [facility] [place] [facility] [address] [place], [address], 08/15/2022 22:12:34 08/06/19 23 08/15/2022 HPV GENOT YPES 16,18 /45 HPV 18/45 RNA NOT DETECT ED not detect ed normal Metho dolog y: Trans cript ion Media chalrotte Ampli ficat ion Cervi john sourc es are requi red for HPV testi ng. If a vagin al sourc e from a patie nt who has had a total hyste recto my with remov al of cervi x was submi tted, pleas e conta ct the testi ng labor atory for alter nativ e testi ng optio ns. Not Available [facility] [place] [facility] [address], [address], 08/15/2022 22:12:34 11/30/19 23 11/30/2022 SURES WAB(R ), HSV TYPE 1/2 MRNA, TMA hsv 1 NOT DETECT ED not detect ed normal Not Available [facility] [place] [facility] [address], [place], [address], 11/30/2022 21:49:35 11/30/19 23 11/30/2022 SURES WAB(R ), HSV TYPE 1/2 MRNA, TMA hsv 2 NOT DETECT ED not detect ed normal Not Available [facility] [place] [facility] [address], [place], [address], 11/30/2022 21:49:35 12/01/19 23 11/30/2022 bacte rial vagin osis + vagin itis panel , vagin al trichomonas vaginalis DNA negati ve Not Available In-Office Order Internal Use Only DO Not Attach Compendium DO Not Attach Compendium, Do Not Delete/merge, [id number] 11/29/2022 14:07:53 12/01/1911/30/2022 bacte rial vagin osis + vagin itis panel , vagin al gardnerella vaginalis DNA negati ve Not Available In-Office Order Internal Use Only DO Not Attach Compendium DO Not Attach Compendium, Do Not Delete/merge, [id number] 11/29/2022 14:07:53 12/01/19 23 11/30/2022 bacte rial vagin osis + vagin itis panel , vagin al eduardo species DNA negati ve Not Available In-Office Order Internal Use Only DO Not Attach Compendium DO Not Attach Compendium, Do Not Delete/merge, [id number] 11/29/2022 14:07:53 12/01/1911/30/2022 bacte rial vagin osis + vagin itis panel , vagin al gardnerella vaginalis Negati ve negati ve normal Not Available In-Office Order Internal Use Only DO Not Attach Compendium DO Not Attach Compendium, Do Not Delete/merge, [id number] 11/29/2022 14:07:53 12/01/1911/30/2022 bacte rial vagin osis + vagin itis panel , vagin al eduardo group Positi ve negati ve abnormal Not Available In-Office Order Internal Use Only DO Not Attach Compendium DO Not Attach Compendium, Do Not Delete/merge, [id number] 11/29/2022 14:07:53 12/01/19 23 11/30/2022 bacte rial vagin osis + vagin itis panel , vagin al eduardo krusei Negati ve negati ve normal Not Available In-Office Order Internal Use Only DO Not Attach Compendium DO Not Attach Compendium, Do Not Delete/merge, [id number] 11/29/2022 14:07:53 12/01/1911/30/2022 bacte rial vagin osis + vagin itis panel , vagin al eduardo glabrata Negati ve negati ve normal Not Available In-Office Order Internal Use Only DO Not Attach Compendium DO Not Attach Compendium, Do Not Delete/merge, [id number] 11/29/2022 14:07:53 12/01/1911/30/2022 bacte rial vagin osis + vagin itis panel , vagin al trichomonas vaginalis Negati ve negati ve normal Not Available In-Office Order Internal Use Only DO Not Attach Compendium DO Not Attach Compendium, Do Not Delete/merge, [id number] 11/29/2022 14:07:53 12/01/1911/30/2022 CT + NG + TV, DNA, urine /swab gonorrhea (GC) negati ve negati ve normal Not Available In-Office Order Internal Use Only DO Not Attach Compendium DO Not Attach Compendium, Do Not Delete/merge, [id number] 11/29/2022 14:07:58 12/01/19 23 11/30/2022 CT + NG + TV, DNA, urine /swab chlamydia (CT) negati ve negati ve normal Not Available In-Office Order Internal Use Only DO Not Attach Compendium DO Not Attach Compendium, Do Not Delete/merge, [id number] 11/29/2022 14:07:58 12/01/19 23 11/30/2022 CT + NG + TV, DNA, urine /swab trichomonias is (TV) negati ve negati ve normal Not Available In-Office Order Internal Use Only DO Not Attach Compendium DO Not Attach Compendium, Do Not Delete/merge, [id number] 11/29/2022 14:07:58 12/19/19 21 12/10/2020 CT, abdom en + pelvi s, w/ contr ast No observ ation record ed. [email or web address] [facility]- [address], [place], [address], 12/18/2020 15:12:22 Result Notes None recorded. Problems Name Problem SNOMED Code Status Onset Date Resolution Date Notes Provider Name and Address Organization Details Recorded Time Diabetes mellitus in mother complicat ing , childbirt h AND/OR puerperiu m 08217449 Active 2019 Diabetes mellitus affecting in third trimester; W/U Status: confirmed Not Available [facility] 0 17:32:49 Past history of gestation al diabetes mellitus 936820281 Active 2019 Hx gestationa l diabetes; W/U Status: confirmed Not Available [facility] 0 17:32:49 Clinical finding Active 2019 ; W/U Status: confirmed Not Available [facility] 0 17:32:49 Pre-eclam psia 234280163 Active 2019 Pre-eclamp lizz, antepartum ; W/U Status: confirmed Not Available [facility] 0 17:32:49 Cyst of ovary 02758375 Active 2015 Ovarian cyst; W/U Status: confirmed Not Available [facility] 0 17:32:49 Mixed anxiety and depressiv e disorder 375305439 Active 2015 Depression with anxiety; W/U Status: confirmed Not Available [facility] 0 17:32:49 Missed miscarria ge 70953291 Active 2015 Missed ; W/U Status: confirmed Not Available [facility] 0 17:32:49 Primigrav devin 140309791 Active 2016 Encounter for supervisio n of normal first in second trimester; W/U Status: confirmed Not Available [facility] 0 17:32:49 Type 2 diabetes mellitus 30764338 Active 2016 DM II (diabetes mellitus, type II), controlled ; W/U Status: confirmed Not Available [facility] 0 17:32:49 Influenza caused by Influenza B virus 68832310 Active 2019 Influenza B; W/U Status: confirmed Not Available [facility] 0 17:32:49 Problem Notes None recorded. Procedures Surgical History Date Name Laterality Status Provider Name and Address Organization Details Recorded Time 3 Date of Last Pap Smear completed Chuy Reeder [facility] 11/29/2022 13:36:28 0 Caesarean Section completed Carmen Royal [facility] 07/24/2020 10:27:14 7 Caesarean Section completed Carmen Royal [facility] 07/24/2020 10:27:14 delivery completed Carmen Royal [facility] 07/24/2020 08:49:29 Imaging Results Imaging Date Name Status LastModified by Organiz ation Details LastModified Time 12/10/2020 CT, abdomen + pelvis, w/ contrast completed [email or web address] [facility]- [address], [place], [address], 12/18/2020 15:12:22 Procedure Notes None recorded. Medical Equipment None Reported. Allergies Allergen ID Allergen Name Allergen Category Reaction Reaction Severity Criticality Documentation Date Start Date Code Code System Note Provider Name and Address Organization Details Recorded Time 8138138 ethinyl estradiol / norethind uma medicatio n dizziness Not available Not available 01/06/2020 59361 0 RxNorm React ion: dizzi ness; Not Available [facility] 0 15:07:36 1247527 Necon 0.5/35 (21) medicatio n Not available Not available Not available 01/06/2020 54514 UNK React ion: SOB; Not Available [facility] 0 15:07:36 Medications Name Sig Start Date Stop Date Status Note LastModified by Organization Details LastModified Time freestyle lite test strips strp active Not Available Not Available Not Available freestyle lancets misc active Not Available Not Available Not Available cyclobenzap rine 10 mg tablet 07/21 completed Not Available Not Available Not Available amoxicillin 500 mg capsule TAKE 1 CAPSULE BY MOUTH TWICE A DAY FOR 10 DAYS active Not Available Not Available No t Available atorvastati n 40 mg tablet TAKE 1 TABLET BY MOUTH EVERY DAY active Not Available Not Available No t Available metformin 500 mg tablet TAKE 1 TABLET BY MOUTH TWICE A DAY active Not Available Not Available No t Available atorvastati n 80 mg tablet 07/21 completed Not Available Not Available Not Available prednisone 10 mg tablet PLEASE SEE ATTACHED FOR DETAILED DIRECTION S 11/29 completed Not Available Not Available Not Available atorvastati n 20 mg tablet TAKE 1 TABLET BY MOUTH EVERY DAY 07/27 completed Not Available Not Available Not Available ibuprofen 800 mg tablet 07/21 completed Not Available Not Available Not Available terconazole 0.8 % vaginal cream INSERT 1 APPLICATO RFUL VAGINALLY EVERY DAY AT BEDTIME FOR 3 DAYS active Not Available Not Available No t Available penicillin V potassium 500 mg tablet 08/02 completed Not Available Not Available Not Available doxycycline monohydrate 100 mg tablet TAKE 1 TABLET EVERY 12 HOURS DAILY 08/02 completed Not Available Not Available Not Available amoxicillin 875 mg tablet TAKE 1 TABLET BY MOUTH TWICE A DAY 08/02 completed Not Available Not Available Not Available famotidine 20 mg tablet TAKE 1 TABLET BY MOUTH TWICE A DAY active Not Available Not Available No t Available doxycycline monohydrate 100 mg capsule TAKE 1 CAPSULE BY MOUTH TWICE A DAY 07/27 completed Not Available Not Available Not Available oseltamivir 75 mg capsule TAKE 1 CAPSULE BY MOUTH TWICE A DAY FOR 5 DAYS 08/02 completed Not Available Not Available Not Available metformin 1,000 mg tablet 07/21 completed Not Available Not Available Not Available omeprazole 20 mg capsule,del ayed release TAKE 1 CAPSULE BY MOUTH EVERY DAY active Not Available Not Available No t Available lisinopril 5 mg tablet TAKE 1 TABLET BY MOUTH EVERY DAY active Not Available Not Available No t Available fluocinonid e 0.05 % topical solution PLEASE SEE ATTACHED FOR DETAILED DIRECTION S active Not Available Not Available No t Available etodolac 500 mg tablet TAKE 1 TABLET BY MOUTH TWICE A DAY NEEDED 07/27 completed Not Available Not Available Not Available amoxicillin 875 mg-potassiu m clavulanate 125 mg tablet TAKE 1 TABLET BY MOUTH TWICE A DAY FOR 7 DAYS active Not Available Not Available No t Available amoxicillin 500 mg-potassiu m clavulanate 125 mg tablet TAKE 1 TABLET BY MOUTH TWICE A DAY 07/27 completed Not Available Not Available Not Available chlorhexidi ne gluconate 0.12 % mouthwash PLEASE SEE ATTACHED FOR DETAILED DIRECTION S active Not Available Not Available No t Available ProAir HFA 90 mcg/actuati on aerosol inhaler TAKE 1 PUFF BY MOUTH EVERY 4 HOURS NEEDED active Not Available Not Available No t Available paroxetine mesylate (menopausal symptoms suppressant ) 7.5 mg capsule TAKE 1 CAPSULE BY MOUTH EVERY DAY active Not Available Not Available No t Available Farxiga 10 mg tablet TAKE 1 TABLET BY MOUTH EVERY DAY active Not Available Not Available No t Available Jardiance 10 mg tablet 08/02 completed Not Available Not Available Not Available Incassia 0.35 mg tablet Take 1 tablet every day by oral route for 90 days. 07/21 completed Not Available Not Available Not Available Flowflex COVID-19 Antigen Home Test kit USE DIRECTED ON THE BOX active Not Available Not Available No t Available Paxlovid 300 mg (150 mg x 2)-100 mg tablets in a dose pack PLEASE SEE ATTACHED FOR DETAILED DIRECTION S 08/02 completed Not Available Not Available Not Available Vitals Date Recorded Body height Body mass index (BMI) Body weight Systolic blood pressure Diastolic blood pressure Provider Name and Address Organization Details Last Updated DateTime 07/24/2020 165.1 cm 39.3 kg/m2 446174.8 g 126 mm[Hg] 76 mm[Hg] Carmen Royal [facility] 1 10:26:56 Date Recorded Body height Body mass index (BMI) Body weight Systolic blood pressure Diastolic blood pressure Provider Name and Address Organization Details Last Updated DateTime 07/30/2021 165.1 cm 40.4 kg/m2 559482.9 5 g 120 mm[Hg] 72 mm[Hg[facility]22 Date Recorded Body height Body mass index (BMI) Body weight Systolic blood pressure Diastolic blood pressure Provider Name and Address Organization Details Last Updated DateTime 08/05/2022 165.1 cm 39.3 kg/m2 470132.8 g 100 mm[Hg] 72 mm[Hg] Kaila Alamobrendon [facility] 3 10:09:30 Date Recorded Body height Body mass index (BMI) Body weight Systolic blood pressure Diastolic blood pressure Provider Name and Address Organization Details Last Updated DateTime 11/29/2022 165.1 cm 39.5 kg/m2 942624.5 5 g 108 mm[Hg] 70 mm[Hg] Chuy Lilli [facility] 3 13:38:01 Social History Question Answer Notes LastModified by Organizat ion Details LastModified Time Tobacco Smoking Status [facility] 10:27:10 What Is Your Level Of Alcohol Consumption? Occasional Information not available 07/24/2020 Concerns About Meeting Basic Needs (food, Housing, Heat, Etc)? No Information not available 08/05/2022 Education 2 Year College Informatio n not available 08/05/2022 What Is The Highest Grade Or Level Of School You Have Completed Or The Highest Degree You Have Received? [id number] Information not available 07/30/2021 Do You Have Any Children? Yes [email or web address] Information not available 07/24/2020 Does Your Partner Physically Hurt You Or Threaten To Hurt You? No Information not available 07/24/2020 Has Your Partner Forced You To Have Sex Or Perform Sex Acts When You Did Not Want To? No Information not available 07/24/2020 Does Your Partner Insult, Scream At Or Talk Down To You? Yes Information not available 07/24/2020 Does Your Partner Control You Or Any Part Of Your Life? Yes Information not available 08/05/2022 Are You Afraid Of Your Partner? No Information not available 07/24/2020 Drug Use? No Information no t available 07/24/2020 Do You Feel Safe At Home? Yes Information not available 07/24/2020 How Many Children Do You Have? 2 Information not available 07/24/2020 Do You Use Protection During Sex? No Information not available 07/24/2020 Are You Sexually Active? Yes Information not available 07/24/2020 How Much Tobacco Do You Smoke? No Information not available 07/24/2020 General Stress Level Medium Information not available 08/05/2022 Do You Feel Stressed (tense, Restless, Nervous, Or Anxious, Or Unable To Sleep At Night)? [id number] Information not available 07/30/2021 Have You Recently Traveled Abroad? No Information not available 07/24/2020 Sex: Unknown Functional Status Question Answer Note LastModified by Organization D etails LastModified Time What is your exercise level? Moderate Information not available 07/24/2020 Mental Status None recorded. Family History Relationship Description Onset Age of this Age Resolved Age Notes LastModified by Organization Details LastModified Time Father Family history of Father alive and well Type II diabet es Not available 07/24/2020 08:48:53 Notes:Children: FamilyHistor yDetails: Father: Maternal Grand Father: Maternal Grand Mother: Mother: NOTE: Paternal Grand Father: Paternal Grand Mother: Paternal uncle: Siblings: Medical History Condition Response Anxiety Disorder Y Diabetes Y Other Y Depression Y Asthma Y Gynecological History Statement/Question Response Date of Last Mammogram Flow Moderate Date of LMP 07/09/2022 Breast Biopsy N IPV Screen Done 11/29/2022 Cervical Cancer N BrCa gene tested? N Ovarian Cancer N Date of Last Colonoscopy Breast Cancer N Date of last DEXA Last HPV Result Positive Abnormal Pap Y BrCa Positive N Infertility N Breast Ultrasound N HPV Vaccine Y Duration of Flow (days) 5 Endometriosis N Age at Menarche 12 Current Control Method Partner Vas ectomy Age at First Child 27 Fibroids N Uterine Cancer N Current Control Method Partner Vas ectomy Frequency of Cycle (Q days) 37 Mammogram Required? N Sexually Active? Y Sexual Problems? N Date of Last Pap Smear 07/16/2022 Pap Required? Y Obstetrics History GPAL:G 3 P 2 0 1 2 Type Value Full Term 2 Living 2 Ectopics 1 Total 3 Immunizations Vaccine Type Date Status Note Provider Nam e and Address Organization Details Recorded Time Influenza, split virus, quadrivalent, PF 02/09/2016 completed Not Available [facility] 08:54:28 Tdap 10/21/2019 completed Not Available [facility] 09/14/2020 08:54:28 Past Encounters Encounter ID Performer Location Encounter Start Date Encounter Closed Date Diagnosis/Indication Diagnosis SNOMED-CT Code Diagnosis ICD10 Code Diagnosis Note [id number] Martina Ayala MD [address], [address] [address] 07/24/2020 10:19:38 07/24/2020 10:41:58 Gynecologic examination 34761085 Z01.273 [id number] Martina Ayala MD [address] [address] 07/30/2021 10:50:12 07/30/2021 11:08:40 Gynecologic examination 16224444 Z01.419 [id number] Maritna Ayala MD [address] [address] 08/05/2022 09:53:32 08/05/2022 10:27:18 Gynecologic examination 95214398 Z01.419 Premenstru al dysphoric disorder 978051 F32.81 [id number] Martina Ayala MD [address] [address] 11/29/2022 13:26:33 11/29/2022 14:00:02 Acute vaginitis 85377760 N76.0 Health Concerns Section Related Observation LastModified by Organization Detai ls LastModified Time None Recorded Concern Status LastModified by Organization Details LastModified Time None Recorded Advance Directives Directive None Recorded Payers Encounter Date Sequence Insurance Name Policy Number Policy Oh Covered Member ID Oh Member ID Guarantor Name 07/24/2020 1 [facility] [place] [id number] Mindy M Keyshawn [id number] Mindy M Keyshawn 07/30/2021 1 [facility] - [place] [id number] Mindy M Keyshawn [id number] Mindy M Keyshawn 08/05/2022 1 [facility] - [place]) [id number] Mindy M Keyshawn [id number] Mindy M Keyshawn 11/29/2022 1 [facility] - [place]) [id number] Mindy M Keyshawn [id number] Mindy M Keyshawn Notes Date Note Type Note Provider Name and Address Organization Details Recorded Time 07/24/2020 text/html presents for annual exam Martina Ayala MD [address] [facility], [address] [place] [address], [phone], [facility] 07/24/2020 10:40:58 07/30/2021 text/html presents for annual exam Martina Ayala MD [address] [facility], [address] [place] [address], [phone], [facility] 07/30/2021 11:07:52 08/05/2022 text/html presents for annual exam c/o of significant anxiety at the time of period Martina Ayala MD [address] [facility], [address] [place] [address], [phone], [facility] 08/05/2022 10:30:39 11/29/2022 text/html c/o vaginal swelling and redness pain yesterday gone today Martina Ayala MD [address] [facility], [address] [place] [address], [phone], [facility] 11/29/2022 14:02:26 OBGyn Episode Ob Episode Information Episode Created Date Number of Fetuses Patient Bloodtype Patient rh Status Prepregnancy Weight lbs Domestic Partner Domestic Partner Phone Father Name Sugarcane Planter Status 07/25/19 21 1 CLOSED Fetus Data First Name Last Name Admitted to NICU Weight (g) Sex Living Outcome Pediatric Complications Fetus ID Race Codes Race Delivery Type M Full Term [id number] - Repeat Moncho Calculation Initial Moncho Date Initial Exam Date Initial Exam Provider Initial Ultrasound Date Last Menstrual Period Date Ultra Sound Weeks Gestation 0 Eighteen To Twenty Week Moncho Update Ultra Sound Date Fundal Height At Umbil Quickening Date Ultra Sound Latest Weeks Gestation Final Moncho Confirmed By Final Moncho Confirmed Date Final Moncho Date Ultra Sound Latest Days Gestation 0 0 Menstrual History Last Menstrual Date Menses Monthly On Bcp Conception Prior Menses Frequency Hcg Plus Date Menarche Onset Age Delivery Information Delivery Date Delivery Type Labor Anesthesia Weeks Gestation Incision Type Labor Labor Length Hrs Delivered By Post Complications Tubal Sterilization Discharge Date Comments 0 Discharge Information Feeding Method Contraceptive Method Maternal HG B and HCT Levels Ob Episode Information Episode Created Date Number of Fetuses Patient Bloodtype Patient rh Status Prepregnancy Weight lbs Domestic Partner Domestic Partner Phone Father Name Sugarcane Planter Status 07/25/19 21 1 CLOSED Fetus Data First Name Last Name Admitted to NICU Weight (g) Sex Living Outcome Pediatric Complications Fetus ID Race Codes Race Delivery Type F Full Term [id number] - Primary Moncho Calculation Initial Moncho Date Initial Exam Date Initial Exam Provider Initial Ultrasound Date Last Menstrual Period Date Ultra Sound Weeks Gestation 0 Eighteen To Twenty Week Moncho Update Ultra Sound Date Fundal Height At Umbil Quickening Date Ultra Sound Latest Weeks Gestation Final Moncho Confirmed By Final Moncho Confirmed Date Final Moncho Date Ultra Sound Latest Days Gestation 0 0 Menstrual History Last Menstrual Date Menses Monthly On Bcp Conception Prior Menses Frequency Hcg Plus Date Menarche Onset Age Delivery Information Delivery Date Delivery Type Labor Anesthesia Weeks Gestation Incision Type Labor Labor Length Hrs Delivered By Post Complications Tubal Sterilization Discharge Date Comments 7 Discharge Information Feeding Method Contraceptive Method Maternal HG B and HCT Levels
--- OUTSIDE RECORDS SUMMARY | 2024-08-04 20:29 | XMS_ITS | Data Portability ---
Author Organization [facility] [id number], svmg_admin Address [address] [place] [phone] Care Team Providers Care Paralegal Legal Secretary Name Role Phone MELLO ABDIRASHID Primary Care Provider MARTINA SHETH Occupational Health Physician Assessment Encounter Date Assessment Date Assessment LastModified by Organization Details LastModified Time 02/16/2017 02/16/2017 26 year old woman presenting for follow up of T2DM after recent delivery. [email or web address] Not available 02/16/2017 16:43:09 Plan of Treatment Reminders Order Date Submit Date Provider Last Modified By Organization Details Last Modified Time Details Appointments None recorde d. Lab hemoglo bin A1C, fingers tick 2019 020 [facility], [address] [place] [address], [address], 0 13:13:16 hemoglo bin A1C, fingers tick [facility], [address] [place] [address], [id number], 7 16:02:27 Referral ophthal molsindyis t referra l 2019 020 apapoutsides Sourav Guerrero MD, [address] [place] [address], [id number], 0 15:57:19 Procedures None recorde d. Surgeries None recorde d. Imaging None recorde d. 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 Follow controlled carb, healthy plate plan: 30-45 g carb per meal and 15 g carb per snack. Aim for minimum of 30 minutes of exercise at least 5 days a week. Take Humalog insulin before all meals and Levemir 36 units at night Not available 11/11/2016 15:15:00 Reason for Referral Laboratory Technical Specialist Referral for and type 2 diabetes mellitus Referring Physician: Roni Lobo, Endocrinology, Encounter Date: 05/08/2019 Results Created Date Observation Date Name Description Value Unit Range Abnormal Flag Note LastModifiedBy Organization Detail LastModifiedTime 02/17/20 17 02/16/2017 hemog lobin A1C, finge rstic k Hemoglobin A1c 6.5 Not Available [address], [address], 02/16/2017 15:51:15 05/08/19 20 05/08/2019 hemog lobin A1C, finge rstic k Hemoglobin A1c 6.1 Not Available [facility] [address] [place] [address], [id number], 05/08/2019 09:52:34 01/19/20 19 01/18/2019 elect romyo gram + nerve condu ction study No observ ation record ed. [email or web address] Not Available 01/08 17:46:29 Result Notes None recorded. Problems Name Problem SNOMED Code Status Onset Date Resolution Date Notes Provider Name and Address Organization Details Recorded Time Headache 12913541 Active VINNIE KLINE MD [address] [place] [address], [phone] , [facility] 5 13:45:12 Uncontrolled type 2 diabetes mellitus 298315995 Active 2016 Carmen Torres MS, RDN, LDN, CDE [address] [place], [phone], [facility] 7 14:36:12 Problem Notes None recorded. Procedures Surgical History Date Name Laterality Status Provider Name and Address Organization Details Recorded Time 7 Section completed Erika Butts [facility] 02/16/2017 15:47:40 5 Other completed Itzel Jovita [facility] 04/06/2015 13:13:30 Imaging Results Imaging Date Name Status LastModified by Organization Details LastModified Time 01/18/2019 electromyogram + nerve conduction study completed [email or web address] Information not available 01/18/2019 17:46:29 Procedure Notes None recorded. Medical Equipment None Reported. Allergies No known drug allergies Medications Name Sig Start Date Stop Date Status Note LastModified by Organization Details LastModified Time cyclobenzap rine 10 mg tablet 05/08 completed Not Available Not Available Not Available amoxicillin 500 mg capsule 05/24 completed Not Available Not Available Not Available atorvastati n 40 mg tablet TAKE 1 TABLET ONCE DAILY 05/08 completed Not Available Not Available Not Available metformin 500 mg tablet 1 TABLET(S) BY ORAL TWICE A DAY 05/08 completed Not Available Not Available Not Available atorvastati n 80 mg tablet 05/08 completed Not Available Not Available Not Available atorvastati n 20 mg tablet TAKE 1 TABLET BY MOUTH EVERY DAY active Not Available Not Available No t Available azithromyci n 250 mg tablet TAKE 2 TABLETS BY MOUTH TODAY, THEN TAKE 1 TABLET DAILY FOR 4 DAYS active Not Available Not Available No t Available ibuprofen 800 mg tablet Take 1 tablet 3 times a day by oral route. 05/08 completed Not Available Not Available Not Available benzonatate 200 mg capsule TAKE 1 CAPSULE BY MOUTH EVERY 8 HOURS NEEDED active Not Available Not Available No t Available clomiphene citrate 50 mg tablet TAKE 1 TABLET BY MOUTH EVERY DAY 05/24 completed Not Available Not Available Not Available hydrocodone 5 mg-acetamin ophen 325 mg tablet TAKE 1 TABLET BY MOUTH EVERY 4-6 HOURS NEEDED FOR PAIN 05/24 completed Not Available Not Available Not Available FreeStyle Lancets 28 gauge CHECK BLOOD SUGARS 6 TIMES DAILY active Not Available Not Available No t Available ondansetron HCl 4 mg tablet TAKE 1 TABLET(S) BY ORAL EVERY SIX HOURS 05/08 completed Not Available Not Available Not Available medroxyprog esterone 5 mg tablet TAKE 1 TABLET BY MOUTH EVERY DAY 05/24 completed Not Available Not Available Not Available metronidazo le 500 mg tablet 05/24 completed Not Available Not Available Not Available prochlorper azine maleate 10 mg tablet TAKE 1 TABLET BY MOUTH EVERY 6 HOURS active Not Available Not Available No t Available sulfamethox azole 800 mg-trimetho prim 160 mg tablet 02/16 completed Not Available Not Available Not Available aspirin 81 mg tablet,licha yed release Take 1 tablet every day by oral route. active Not Available Not Available No t Available tramadol 50 mg tablet 05/24 completed Not Available Not Available Not Available amoxicillin 500 mg tablet TAKE 1 TABLET BY MOUTH 3 TIMES A DAY UNTIL FINISHED 05/24 completed Not Available Not Available Not Available oxycodone-a cetaminophe n 5 mg-325 mg tablet TAKE 1 TABLET BY MOUTH EVERY 6 HOURS NEEDED FOR PAIN CONTROL 02/16 completed Not Available Not Available Not Available citalopram 20 mg tablet TAKE 1 TABLET EVERY DAY 05/24 completed Not Available Not Available Not Available cephalexin 500 mg capsule 05/08 completed Not Available Not Available Not Available oseltamivir 75 mg capsule 05/08 completed Not Available Not Available Not Available metformin 1,000 mg tablet TAKE 1 TABLET BY MOUTH TWICE A DAY active Not Available Not Available No t Available lisinopril 10 mg tablet TAKE 1 TABLET BY MOUTH DAILY 05/24 completed Not Available Not Available Not Available indomethaci n 25 mg capsule Take 1 capsule 3 times a day by oral route for 30 days. 05/24 completed Not Available Not Available Not Available omeprazole 20 mg capsule,del ayed release TAKE 1 TABLET ONCE DAILY 05/24 completed Not Available Not Available Not Available nystatin 100,000 unit/gram topical powder active Not Available Not Available Not Available ibuprofen 600 mg tablet TAKE 1 TABLET BY MOUTH EVERY 8 HOURS 05/08 completed Not Available Not Available Not Available Cipro HC 0.2 %-1 % ear drops,suspe nsion USE 3 DROPS INTO AFFECTED EAR 3 TIMES DAILY 05/24 completed Not Available Not Available Not Available ondansetron 4 mg disintegrat ing tablet TAKE 1 TABLET BY MOUTH EVERY 6 HOURS NEEDED active Not Available Not Available No t Available sulindac 200 mg tablet TAKE 1 TABLET BY MOUTH TWICE A DAY active Not Available Not Available No t Available amoxicillin 875 mg-potassiu m clavulanate 125 mg tablet 05/08 completed Not Available Not Available Not Available amoxicillin 500 mg-potassiu m clavulanate 125 mg tablet TAKE 1 TABLET BY MOUTH TWICE A DAY 05/24 completed Not Available Not Available Not Available Sprintec (28) 0.25 mg-0.035 mg tablet 05/24 completed Not Available Not Available Not Available Mary Beth 0.35 mg tablet 05/08 completed Not Available Not Available Not Available Nortrel (28) 0.5 mg/0.75 mg/1 mg-35 mcg tablet TAKE 1 TABLET BY MOUTH DAILY active Not Available Not Available No t Available Junel 1.5/30 (21) 1.5 mg-30 mcg tablet 02/16 completed Not Available Not Available Not Available nitrofurant oin monohydrate /macrocryst als 100 mg capsule 02/16 completed Not Available Not Available Not Available BD Ultra-Fine Mini Pen Needle 31 gauge x 06/23 USE 1 NEEDLE FOR NPH INJECTION DAILY active Not Available Not Available No t Available Pain Relief Extra Strength (acetaminop hen) 500 mg tablet 05/08 completed Not Available Not Available Not Available 1 daily 02/16 completed Not Available Not Available Not Available Vitamin active Not Available Not Available Not Available ProAir HFA 90 mcg/actuati on aerosol inhaler USE 2 PUFFS EVERY 4 HRS NEEDED 05/08 completed Not Available Not Available Not Available peg 3350 240 gram-electr olytes 22.72 gram-6.72 g-5.84 g powdr for soln TAKE DIRECTED. active Not Available Not Available No t Available FreeStyle Lite Meter kit CHECK BLOOD SUGARS 6 TIMES DAILY active Not Available Not Available No t Available FreeStyle Lite Strips CHECK BLOOD SUGARS 6 TIMES DAILY 2019 active last Not Available Not Available Not Available Humalog KwikPen (U-100) Insulin 100 unit/mL subcutaneou s TAKE UP TO 10 UNITS BEFORE EACH MEAL three times daily 02/16 completed Not Available Not Available Not Available 28 mg iron-800 mcg tablet 02/16 completed Not Available Not Available Not Available Humulin N NPH U-100 Insulin KwikPen 100 unit/mL (3 mL) subcutaneou s INJECT 8 UNIT(S) EVERY DAY BY SUBCUTANE OUS ROUTE AT BEDTIME. active Not Available Not Available No t Available Levemir FlexTouch U-100 Insulin 100 unit/mL (3 mL) subcutaneou s pen Inject 34 units once daily 02/16 completed Not Available Not Available Not Available Afluria 4098-0288 (PF) 45 mcg (15 mcg x 3)/0.5 mL IM syringe TO BE ADMINISTE RED BY PHARMACIS T FOR IMMUNIZAT ION 05/24 completed Not Available Not Available Not Available OneTouch Ultra2 Meter USE 1 APPLICATI ON(S) BY SUBCUTANE OUS FOUR TIMES A DAY 05/08 completed Not Available Not Available Not Available Vitals Date Recorded Body height Provider Name an d Address Organization Details Last Updated DateTime 09/20/2019 165.1 cm Aphrodite Papjaydenides [facility] 09/20/2019 13:14:31 Date Recorded Body height Body mass index (BMI) Body weight Provider Name and Address Organization Details Last Updated DateTime 11/11/2016 165.1 cm 49.4 kg/m2 185015.93 g Carmen Torres MS, RDN, LDN, CDE [address] [place] [address], [phone], [facility] 11/11/2016 14:49:46 Date Recorded Body height Body mass index (BMI) Body weight Oxygen saturation Oxygen saturation in Arterial blood by Pulse oximetry Heart rate Body temperature Systolic blood pressure Diastolic blood pressure Provider Name and Address Organization Details Last Updated DateTime 7 165.1 cm 45.3 kg/m2 150783. 84 g 98 % 98 % 96 /min 97 [degF] 134 mm[Hg] 89 mm[Hg] Erika Butts [facility]. 15:57:17 Date Recorded Body weight Body mass index (BMI) Body height Body temperature Heart rate Oxygen saturation Oxygen saturation in Arterial blood by Pulse oximetry Systolic blood pressure Diastolic blood pressure Provider Name and Address Organization Details Last Updated DateTime 0 385495. 8 g 39.3 kg/m2 165.1 cm 97.7 [degF] 81 /min 99 % 99 % 103 mm[Hg] 73 mm[Hg] Niecy Cotto [facility] 0 09:30:30 Social History Question Answer Notes LastModified by [email or web address] Details LastModified Time Tobacco Smoking Status Never Smoker Itzel tejada [facility] 04/06/2015 13:08:17 Do You Have An Advance Directive? No Information not available 04/06/2015 What Is Your Level Of Alcohol Consumption? Occasional Information not available 04/06/2015 Are You Blind Or Do You Have Difficulty Seeing? No Information not available 04/06/2015 What Is Your Level Of Caffeine Consumption? Moderate Information not available 04/06/2015 Are You Deaf Or Do You Have Serious Difficulty Hearing? No Information not available 04/06/2015 Which Of Your Hands Is Dominant? Right Information not available 04/06/2015 Marital Status Informatio n not available 04/06/2015 What Was The Date Of Your Most Recent Tobacco Screening? 05/08/2019 [email or web address] Information not available 05/08/2019 How Many Children Do You Have? 0 Information not available 04/06/2015 Work Related Injury? No Information not available 04/06/2015 Sex: Unknown Functional Status Question Answer Note LastModified by [email or web address] Details LastModified Time Do you have difficulty walking or climbing stairs? No Information not available 04/06/2015 Do you have difficulty doing errands alone? No Information not available 04/06/2015 Do you have difficulty dressing or bathing? No Information not available 04/06/2015 What is your exercise level? Occasional Information not available 04/06/2015 Mental Status Question Answer Note LastModified by Organization D etails LastModified Time Do you have difficulty concentrating, remembering or making decisions? Yes Information no t available 04/06/2015 Family History Relationship Description Onset Age of this Age Resolved Age Notes LastModified by Organization Details LastModified Time Father Cluster headache luz Not available 2014 13:23:47 Medical History Condition Response Anxiety Disorder Y Obesity Y Headache Y Arthritis Y Depression Y Gynecological HistoryNo gynecological history recorded. 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 The other possibilit ies include paroxysmal hemicrania and an unusual form of migraine. Intracrani al hypertensi on is also possible though less likely. Part of the diagnosis of hemicrania continua is a complete response to indomethac in. I will try this. Side effects were reviewed. She needs to take this with food. She has been instructed on that. I will obtain the results of the MRI brain as well. I asked her to call me in about a week or 2 to let me know how she is feeling on the indomethac in. I instructed her not to take ibuprofen while taking the indomethac in. She can use medicines like acetaminop hen. I recommend against long-term use of opioids for headache management . [id number] Sherrell Richardson MD [facility] [address] [facility] [place] [address] 05/24/2016 10:02:33 05/24/2016 12:02:06 Uncontrolled type 2 diabetes mellitus 248839468 E11.65 Diabetes Education: Initial Assessment (Gestation al 12 weeks) Mindy was diagnosed with type 2 Diabetes approximat [place] 7 years ago. She has been taking Metformin for at least 5 years. She reports that she hasn't been good with checking her blood glucose because she doesn't like to stick herself. She is not a fan of needles.SM BG: She just got the OneTouch verio from her doctor and will start checking 6x daily. It is recommende d that she check BG before and 2 hours after all meals every day.In office fingerstic k glucose at 10:44 am (1+ hour post breakfast) is 247 mg/dL.Rece nt HbA1c on May 09 was 7.9%. DM Medication s: Metformin 1000 mg BID was stopped by PCP when discovered . After consult with Dr. Richardson, we are re-startin g Metformin and adding LEVEMIR 18 units at bedtime. Eyes: annual exams - no issues Feet: self-check daily - no issues Teeth: Dentist every 6 months Weight today: 282 lbs (reports weight was 265 lbs in March) Importance of Exercise and Diet in controllin g Diabetes Diet Recall: Breakfast at 9:30 today was Italian muffin with egg and cheese with glass of water. Lunch yesterday was 3 breaded chicken tenders with glass of water. Dinner last night was 2 hot dogs in rolls with water. Between meals she will snack on fruit and nuts (almonds, walnuts or pecans). She drinks 4-5 16oz water bottles daily (unable to tolerate other fluids at this time). Other snacks: 2-3 slices of Tunisian cheese daily, unsalted pretzels 3x week and Activia yogurt 1-2x week. Exercise: treadmill at gym 3-4 days/week for 30 minutes at 2.5 mph GOALS: Better blood glucose control during RECOMMENDA TIONS: Check BG before and 2 hr post meals; follow controlled carb plan 30-45 g per meal and 15 g per snack; regular exercise; start LEVEMIR 18 units at bedtime; restart Metformin TIME SPENT: 65 minutes [id number] Sherrell Richardson MD [facility] [address] [facility] [address] [place] [address] 06/01/2016 13:49:37 06/01/2016 14:34:23 Uncontrolled type 2 diabetes mellitus 530720815 E11.65 Discussed the complicati ons associated with gestationa l diabetes on fetus including injuries, childhood obesity, hypoglycem ia, and macrosomia . Also discussed future risk of diabetes after . Her blood sugars are above goal. Will continue metformin at current dose. Will increase levemir to 22 units daily. Will start humalog 4 units with breakfast and lunch and 5 units with dinner.She will also follow the following correction al scale of humalog before each meal:BG 121-150: 1 [id number] 0: 2 rtyah865-1 50: 3 ubbnx477-5 00: 4 yroxr811-8 50: 5 qopdg436-1 00: 6 unitsShe will continue to check her blood sugar 6 times daily. She understand s goals of target glucose, fasting ?95 mg/dL, 1 hour post-prand ial ?140 mg/dL or 2 hours post-prand ial ?120 mg/dL.She will continue to keep a food/gluco se log and will bring it with her at each visit.Will follow up with her every week until blood glucose is at target. Diabetes suman cote during - baby not yet delivered 566501800 O24.562 [id number] Sherrell Richardson MD [facility] [address] [address] 06/14/2016 08:12:34 06/14/2016 09:14:09 Uncontrolled type 2 diabetes mellitus 621508945 E11.65 Most fingerstic k readings are still not at goal. Review of her food log shows most meals are heavy in carbs and fat. Discussed reducing carb intake. Also discussed using healthier snack options late at night. Will set up follow up appointmen t with our CDE next week to control carb intake.Dontae thompson send refills for metformin. Discussed the importance of medication compliance and to call our office whenever she runs out of diabetes medication s and not waiting till next appointmen t to get refills.Wi ll increase levemir to 26 units daily. Will increase humalog to 6 units with breakfast and lunch and 8 units with dinner, 4 units with snack. She will also follow the following correction al scale of humalog before each meal:BG 121-150: 2 [id number] 0: 4 -3 50: 6 gcvok011-0 00: 8 ylnzl274-9 50: 10 -7 00: 12 unitsShe will continue to check her blood sugar 6 times daily. She understand s goals of target glucose, fasting ?95 mg/dL, 1 hour post-prand ial ?140 mg/dL or 2 hours post-prand ial ?120 mg/dL.She will continue to keep a food/gluco se log and will bring it with her at each visit.Will follow up with her every week until blood glucose is at target. Diabetes suman cote during - baby not yet delivered O24.548 [id number] Sherrell Richardson MD [facility] [address] [place] [address] 06/29/2016 15:20:08 06/29/2016 15:51:04 Uncontrolled type 2 diabetes mellitus 651218408 E11.65 Her glycemic control has improved significan tly since last visit. Most 2-hour post-prand ial FS are at goal. Since fasting glucose is still not at goal, will increase levemir to 30 units daily.Cecy mancia discussed reducing carb intake and avoiding foods with refined sugar like doughnuts. Will set up appointmen t with our CDE next week to control carb intake.She will continue to check her blood sugar 6 times daily. She understand s goals of target glucose, fasting ?95 mg/dL, 1 hour post-prand ial ?140 mg/dL or 2 hours post-prand ial ?120 mg/dL. She will continue to keep a food/gluco se log and will bring it with her at each visit.Will follow up with her every week until blood glucose is at target. Diabetes suman cote during - baby not yet delivered O24.842 [id number] Roni Lobo MD [facility]End[facility] crinology [address] [place] [phone] 07/07/2016 14:27:31 07/07/2016 15:12:14 Uncontrolled type 2 diabetes mellitus 222126677 E11.65 Diabetes Education: Follow Up (Gestation al 12 weeks) SMBG: She forgot the meter and log sheets today. Self-repor ts fasting today 98 and 2-hr post breakfast 121 mg/dL. She hasn't had lunch yet. In office fingerstic k glucose 110 @2:44DM Medication s: Metformin 1000 mg BID. Levemir 30 units at 10 pm. Humalog with meals: 6 units with breakfast and lunch, 8 units with dinner.Jonah elkins Recommend increasing Levemir to 32 units (since fastings remain >95 still) Importance of Exercise and Diet in controllin g Diabetes Diet Recall: Breakfast today 2 plain waffles and glass of water. She hasn't had time for lunch today and she forgot her water bottle so she is feeling a little thirsty and lethargic this afternoon. Exercise continues: treadmill at gym 3-4 days/week for 30 minutes at 2.5 mph GOALS: Better blood glucose control during RECOMMENDA TIONS: Check BG before and 2 hr post meals; follow controlled carb plan 30-45 g per meal and 15 g per snack; regular exercise; take medication s as directed TIME SPENT: 30 minutes [id number] Shrerell Richardson MD [facility] [address] [place] [address] 07/13/2016 14:03:55 07/13/2016 14:43:48 Uncontrolled type 2 diabetes mellitus [id number] E11.65 Reviewed her glucose and food log. Most 2-hour post-prand ial FS are at goal. Since fasting glucose is still not at goal, will increase levemir to 34 units daily. Will increase pre-dinner humalog to 8 units as well. She will continue to check her blood sugar 6 times daily. She understand s goals of target glucose, fasting ?95 mg/dL, 1 hour post-prand ial ?140 mg/dL or 2 hours post-prand ial ?120 mg/dL. She will continue to keep a food/gluco se log and will bring it with her at each visit.Will follow up with her in 2 weeks. Diabetes suman cote during - baby not yet delivered [id number] O24.100 [id number] Sherrell Richardson MD [facility] [address] [place] [address] 08/11/2016 11:28:08 08/11/2016 12:00:25 Uncontrolled type 2 diabetes mellitus 095162748 E11.65 Reviewed her glucose and food log. Since most readings are at goal, will continue current regimen without any changes.Sh e will continue to check her blood sugar 6 times daily. She understand s goals of target glucose, fasting ?95 mg/dL, 1 hour post-prand ial ?140 mg/dL or 2 hours post-prand ial ?120 mg/dL. She will continue to keep a food/gluco se log and will bring it with her at each visit.Will follow up with her in 4 weeks. Diabetes suman cote during - baby not yet delivered [id number] O24.299 [id number] Carmen Torres MS, RDN, LDN, CDE [facility] [address] [address] 09/08/2016 08:43:02 09/08/2016 09:12:24 Uncontrolled type 2 diabetes mellitus 963977179 E11.65 Diabetes Education: Follow Up (Gestation al 12 weeks) SMBG: log sheets from 08/04 to 08/24 (ran out of paper) show Fasting range 72-94. 2-hr post breakfast 92-115. Pre-lunch 72-104. Post-lunch 90-118. pre-dinner 84-96. post-dinne r 97-120.Fas ting today was 100 (which is higher than usual - could be related to a midnight snack of chocolate) In office fingerstic k glucose (no meds or food yet this morning) is 139/132 mg/dL.DM Medication s: Metformin 1000 mg BID. Levemir 34 units at 10 pm. Humalog with meals: 6 units with breakfast and lunch, 10 units with dinner. t Recall: She is keeping the carbs controlled with meals but the midnight snack can be problemati c. She tends to eat either chocolate or some other sweet in the middle of the night (if she gets up). She has not been able to go the gym over the last week due to ligaments being pulled.GOA LS: Better blood glucose control during RECOMMENDA TIONS: Check BG before and 2 hr post meals; follow controlled carb plan 30-45 g per meal and 15 g per snack; regular exercise; take medication s as directed TIME SPENT: 30 minutes [id number] Nicole Mcdermott [facility] [address] [phone] 11/11/2016 14:28:32 11/11/2016 15:06:45 Uncontrolled type 2 diabetes mellitus [id number] E11.65 Diabetes Education: Follow Up (Gestation al 35 weeks) SMBG: No meter or log sheets todayFasti ng today 98 mg/dL. 2-hr post breakfast 92 mg/dL. wasn't able to check pre-lunch or take insulin because she forgot the meter and Humalog.In office fingerstic k glucose 156 mg/dL 1 hour after lunchDM Medication s: Metformin 1000 mg BID. Levemir 36 units at 10 pm. Humalog with meals: 6 units with breakfast, 10 units with lunch, 14 units with dinner. t Recall: She is keeping the carbs controlled with meals. Lunch today was on the go from [employer] : 2 snack wraps and a small chocolate shake.GOAL S: Better blood glucose control during RECOMMENDA TIONS: Check BG before and 2 hr post meals; follow controlled carb plan 30-45 g per meal and 15 g per snack; regular exercise; take medication s as directed TIME SPENT: 30 minutes [id number] Sherrell Richardson MD [facility] [address] [facility] [place] [address] 02/16/2017 15:34:19 02/16/2017 16:19:08 Uncontrolled type 2 diabetes mellitus [id number] E11.65 Her HbA1C today is 6.5%, improved from before.Sin ce she is not breastfeed ing, I recommende d restarting metformin 500mg BID.Advise d to check FS more frequently and at variables times of the day and to bring glucometer at each visit.Disc ussed target HbA1C of <7% and target glucose with the patient, fasting 90-130 mg/dl, and 2-hours post-prand ial <170mg/dl. She does not have any known complicati ons of diabetes.W ill check urine microalbum in at next visit.Kevin thompson time spent 30 minutes face to face with the patient with over 50% spent on counseling / coordinati on of care. [id number] VINNIE KLINE MD neurology - [facility] - office [address] [facility],[address] [place] [address] 01/18/2019 08:35:56 01/18/2019 09:39:44 Paresthesia [id number] R20.2 EMG of the BUE is normal. [id number] Roni Lobo MD [facility] [address] [phone] 05/08/2019 08:58:09 05/08/2019 10:00:58 and type 2 diabetes mellitus [id number] O24.119 A1c is 6.1%. Freestyle meter and strips prescribed . She will check before and after meals and call with readings in 2-3 days. Metformin is fine. Most likely require insulin.Di et discussedO phthalmolo gy consult requested. Glycemic goals discussedS pend about 20 minutes in counseling and expectatio ns/goal/nu trition/in sulin during [id number] Roni Lobo MD [facility] [address] [phone] 09/20/2019 13:14:08 09/20/2019 13:51:46 Diabetes mellitus during - baby not yet delivered [id number] O24.419 I have added 4 units of NPH at breakfast given the high blood glucose before supper and after supper. She will continue 8 units of NPH at night also. She will email her blood sugars every few days for insulin adjustment . She is due for a in the first week of November. Health Concerns Section Related Observation LastModified by Organization Francine ls LastModified Time None Recorded Concern Status LastModified by Organization Details LastModified Time None Recorded Advance Directives Directive N: Payers Encounter Date Sequence Insurance Name Policy Number Policy Oh Covered Member ID Oh Member ID Guarantor Name 11/11/2016 1 [employer] - TOGETHER (MEDICAID HMO) [id number] Mindy Irving [id number] Mindy Irving 02/16/2017 1 [employer] - TOGETHER (MEDICAID HMO) [id number] Mindy Jacqui [id number] Mindy Irving 01/18/2019 1 [employer] - TOGETHER (MEDICAID HMO) [id number] Mindy Jacqui [id number] Mindy Jacqui 05/08/2019 1 [employer] - TOGETHER (MEDICAID HMO) [id number] Mindy Jacqui [id number] Mindy Jacqui 09/20/2019 1 [employer] - TOGETHER (MEDICAID HMO) [id number] Mindy Osman [id number] 1 Mindy Osman Notes Date Note Type Note Provider Name and Address Organization Details Recorded Time 11/11/2016 text/html Diabetes f/upRep orted bypatient.Review finger sticks:forgot meter and log sheets Context:seeing eye doctor regularly; checking feet regularly; not missing doses of medications; no side effects from medications; self-reports fasting today 98 mg/dL Associated Symptoms:no dizziness; no sweats; no headaches; no confusion; no increased thirst; no increased appetite; no increased urination; no blurred vision; no numbness of feet; no calluses on feet;weight gain (5 lbs) Carmen Torres MS, RDN, LDN, CDE [address] [place] [address], [phone], [facility] 11/11/2016 15:15:24 02/16/2017 text/html 26 year old chato mancia presenting for follow up of T2DM after recent delivery. She delivered a healthy baby girl through on 12/10/16. She weighed 8 lbs 13 oz at .She did not have hypoglycemia after delivery or any other complications. Type 2 diabetes was diagnosed 7 years ago. Before , she was just on metformin 1000mg BID.During , she was on metformin, levemir and humalog with each meal.She was very compliant with her insulin and follow ups in the first 2 trimesters. However she did not follow up at all during her last trimester despite several attempts.Since she delivered, she has not been on anything.She did not bring her glucometer today and has not been checking her FS routinely.She is not . Last eye exam: 03/2016, no diabetic retinopathy per patient. Denies any numbness/tingling in feet. She denies any polydipsia, polyuria, fatigue, chest pain, dyspnea.She will be undergoing GI work up for anemia. She does not work. Lives at home with mother, fiance, and mother's boyfriend. Father has type 2 diabetes. Maternal grandfather has type 1 diabetes but takes pills and insulin?Does not smoke or drink alcohol. Labs:02/16/17: HbA1C 6.55/07/25: HbA1C 6.93/: HbA1C 7.501/: HbA1C 7.911/: T chol 165, TG 146, HDL 44, LDL 92, TSH 1.95 Sherrell Richardson MD [address] [place] [address], [phone], [facility] 02/16/2017 16:45:55 01/18/2019 text/html Here for EMG for BUE numbness. Evaluate for neuropathy versus radiculopathy VINNIE KLINE MD [address] [place], [phone], [facility] [employer]. 01/18/2019 09:45:57 05/08/2019 text/html Type 2 DM for starr Herbert in 2015 with DM - required insulin - no controlledAfter delivery did very well with metforminLost weight - significant - diet and exercise.spontaneous pregnancyJulianna has stopped atorvastatinNo complications of DMFather has type 2 and Grandfather type 1No tobacco or alcohol use Roni Lobo MD [address] [place] [address], [phone], [facility]. 05/08/2019 10:02:38 09/20/2019 text/html This is a Telehe alth visit, via telephone. Patient understands the risks, benefits and limitations of this type of visit. Patient consents for this visit. This type of visit is being utilized as it was deemed higher risk for patient to come to office given the current risk of COVID-19/coronavirus infection. The patient is located in [place] at the time of this visit. Physician is located in [place], [place] at the time of this visit. Visit Began: 2.28 PM Visit Ended: 2.43 PM The following people were with the patient at time of this Telehealth visit: Patient Karolina has pre-gestational diabetes mellitus. I saw her several months ago. She was on metformin at that time. NPH was started at night; she currently takes 8 units. Her morning blood glucose levels are just below 95 mg/dL. Around lunchtime are also on the low side. Presupper blood sugars of 120 and post supper are 150 mg/dL. She has gained approximately 16 pounds during the . She is physically active. She reports no hypoglycemic episodes. She relates very healthy for breakfast, lunch and dinner. She also eats a small bedtime snack. She does not have any other complaints including nausea and swelling of the abdomen. She is not going out of the house due to the ongoing pandemic. Roni Lobo MD [address] [place] [address], [phone], [facility]. 09/20/2019 13:47:40 OBGyn Episode No OBEpisode recorded.
[2024-08-04 20:30] VITALS: BP 141/81; PULSE 84; RESP 16; TEMP 36.7; O2SAT 99
[2024-08-04 20:30] LABS: Partial Thromboplastin Time 28.4 SEC (26.0-36.8)
[2024-08-04 20:32] LABS: Bacteria Urine None Seen (None Seen); Hyaline Casts Urine 0-2 /LPF (0-2); RBC Urine >20 /HPF (0-2); Squamous Epithelial Cell Urine 0-2 /HPF (0-2); WBC Urine 0-5 /HPF (0-5)
[2024-08-04 20:41] LABS: Alanine Aminotransferase 23 U/L (0-31); Albumin Level 4.1 g/dL (3.5-5.0); Alkaline Phosphatase 93 U/L (39-117); Anion Gap 14 (12-20); Aspartate Amino Transferase 29 U/L (5-31); Bilirubin Total 0.4 mg/dL (0.0-1.0); Blood Urea Nitrogen 11 mg/dL (9-16); Calcium 9.3 mg/dL (8.4-10.2); Carbon Dioxide 27 mmol/L (22-29); Chloride 103 mmol/L (96-108); Creatinine Clr Calc Pharmacy 128.9; Estimated Glomerular Filt Rate > 60; Glucose Random 164 mg/dL (60-115); Sodium 140 mmol/L (135-145); Total Protein 7.2 g/dL (6.5-8.0)
[2024-08-04 20:42] LABS: HCG Quantitative 12 mIU/mL
[2024-08-04] MEDS: Ketorolac Tromethamine 30 MG/ML VIAL IM (21:13)
[2024-08-04 22:00] VITALS: BP 110/65; PULSE 74; RESP 16; TEMP 36.6; O2SAT 95
--- NOTE | 2024-08-04 23:24 | PC.NURSE ---
Care assumed of pt at this time. Awaiting dispo.
[2024-08-04 23:43] VITALS: BP 118/83; PULSE 72; RESP 16; TEMP 36.6; O2SAT 98
[2024-08-04 23:46] VITALS: BP 118/83; PULSE 72; RESP 16; TEMP 36.6; O2SAT 98
== END 2024-08-04 23:47 | disposition home or self-care (01) ==
PROVIDERS: Physician Assistant; Emergency Provider Emergency Medicine; PCP Internal Medicine
DX: N93.8 Other specified abnormal uterine and vaginal bleeding (principal); R10.30 Lower abdominal pain, unspecified
CPT/HCPCS: 36415; 76830; 76856; 80053; 81001; 81025; 84702; 85025; 85610; 85730; 93975; 96372; 99284; J1885

== ENCOUNTER → 2024-08-04 21:25 | Outpatient (BNV) | payer OTHER, SELFPAY | PROVIDERS: Emergency Provider Emergency Medicine; PCP Internal Medicine; Visit Provider Student in an Organized Health Care Education/Training Program | DX: R10.2 Pelvic and perineal pain (principal) | CPT/HCPCS: 76830; 76856; 93975 ==

== ENCOUNTER 2024-10-06 06:23 | Emergency (ER) | payer OTHER, SELFPAY ==
--- NOTE | ~2024-10-06 | CT_ITS ---
CLINICAL HISTORY: Right lower quadrant right flank pain CT abdomen and pelvis without contrast Comparison: None Findings: The heart is not enlarged. The lung bases are clear. Cholelithiasis without cholecystitis. The liver measures 16.5 cm in length along the midclavicular line. No focal hepatic masses. No urolithiasis or urinary obstruction. Other abdominal solid organs are unremarkable. No bowel obstruction. Normal appendix. Pelvic structures unremarkable. Mild degenerative change of the spine. IMPRESSION: No acute findings. This document has been electronically signed by: Luiz Swartz DO on 10/06/2024 11:14:59
[2024-10-06 06:44] VITALS: BMI 39.9
[2024-10-06 07:03] LABS: MANUAL DIFF FLAG NO
--- NOTE | 2024-10-06 07:13 | ED_ITS ---
HPI - Abdominal Pain General Chief Complaint: Abdominal Pain Stated Complaint: back pain Time Seen by Provider: 10/06/24 07:06 Source: patient Mode of arrival: ambulatory Limitations: no limitations History of Present Illness ED Provider: DR. Bright HPI narrative: 34-year-old female came in for evaluation of a sudden onset of right flank pain radiating down to the right groin area started since 03:00 in the morning pain is associated with nausea no vomiting, fever no chills, no dysuria, no frequency urination no hematuria, no vaginal discharge patient has started her menstruation yesterday with normal vaginal bleed, patient declined any chance of being . Last bowel was this morning, +passing flatus. Past abdominal surgical history significant for multiple C-sections. Patient stated history of similar pain when she had a kidney stone. Related Data Previous Rx's ?Medication ?Instructions ?Recorded cyclobenzaprine 10 mg tablet 10 mg PO TID PRN muscle s pasm #14 10/06/24 tabs naproxen 500 mg tablet 500 mg PO BID PRN pain #20 t abs 10/06/24 Allergies Allergy/AdvReac Type Severity Reaction Status Date / Time ethinyl estradiol (From Allergy Shortness Verified 10/06/24 06:46 Norethin 1/35E (21)) of Breath norethindrone (From Norethin Allergy Shortness Verified 10/06/24 06:46 1/35E (21)) of Breath Review of Systems Review of Systems All other systems are reviewed and are negative Constitutional: Reports as per HPI and Reports no additional constitutional complaints Eyes: Reports as per HPI and Reports no additional eye complaints Reports system reviewed and no additional complaints, except as documented Cardiovascular: Reports as per HPI and Reports no additional cardiovascular complaints Respiratory: Reports as per HPI and Reports no additional respiratory complaints Gastrointestinal: Reports as per HPI and Reports no additional gastrointestinal complaints Genitourinary: Reports no additional female genitourinary complaints Musculoskeletal: Reports no additional musculoskeletal complaints Skin/Breast: Reports system reviewed and no additional complaints, except as docu Psychiatric: Reports no additional psychiatric complaints Endocrine: Reports no additional endocrine complaints Hematologic/Lymphatic: Reports no additional hematologic/lymphatic complaints Allergic/Immunologic: Reports no additional allergic/immunologic complaints Reports system reviewed and no additional complaints, except as documented and Reports Abnormal speech present [facility] Social History Social History Smoked in Last 30 Days: No Use of substances other than those prescribed or required for medical reasons: No Advance Directives: No Advance Directives Information Provided: Yes Do you have a plan to hurt others: No Plan Patient : No Physical Exam ED Vital Signs: Vital Signs - 24 hr 10/06/24 07:47 Temperature 97.5 F Pulse Rate 68 Respiratory Rate 18 Blood Pressure 140/93 H Pulse Oximetry 98 Oxygen Delivery Method Room Air BMI result Body Mass Index 39.9 Vital signs have been reviewed and appear to be correct. Blood pressure elevated. Heart rate normal. Respiratory rate normal. Temperature normal. Oxygen saturation normal. Appearance: Alert. Oriented X3. No acute distress. Head: Normal external exam. Normocephalic. Atraumatic. No Mccrary signs noted. No raccoon eyes noted Eyes: PERRLA. EOMI. Conjunctiva and sclera normal. Eyelids normal. ENT: TM's Normal. Pharynx normal. Uvula midline. Moist mucous membranes. No trismus noted. No drooling noted. No muffled voice noted. Neck: Normal inspection. Neck supple. FROM. No adenopathy. Thyroid Normal. No meningeal signs. No neck mass noted. CVS: Normal heart rate and rhythm. Heart sound normal. No murmurs noted. Pulses normal throughout. Respiratory: No respiratory distress. Painless inspiration. Breath sounds normal. No wheezes/rales/rhonchi noted. Chest nontender. No accessory muscle usage noted or decreased air movement noted. Abdomen: Soft , obese, right lower quadrant abdominal pain with deep palpation, no palpable mass. Bowel sounds normal in all 4 quadrants. No distention noted. No organomegaly noted. No visible injury noted. Back: Right CVA tenderness. Full range of motion noted. Skin: Skin warm and dry. Normal skin color. Normal skin turgor. No rashes/lesions/lacerations noted. Extremities: No lower extremity edema. Extremities exhibit normal range of motion. Extremities nontender. Neuro: Oriented X 3. Cranial nerve exam: II-XII are grossly intact No motor deficit. No sensory deficit. Reflexes normal. Course Reevaluation(s) Reevaluation #1: back pain radiates to the right lower abdomen, pain has improved with IV pain medication given in the ED went from 10/10 to 2/10 now, patient with a normal neuro exam able to ambulate, never had history of IV drug use or having fever Therefore no concern of epidural abscess. CT abdomen pelvis is unremarkable, hematuria likely secondary to menstruation will discharge patient lab work seen, bed rest, heating pads to the lower back and follow-up with PCP. Time: 11:52 Medical Decision Making Differential Diagnosis Differential Diagnoses: The differential diagnosis associated with the presentation includes ( Acute appendicitis, kidney stone, UTI, pyelonephritis, myofascial low back pain, .) Admission/Observation Consideration of admission/observation: Escalation of care including admission/observation considered Lab Data MDM Lab Attestation statement: I reviewed the patient's lab results. 10/06/24 06:58 10/06/24 06:58 Labs: Lab Results 10/06/24 10/06/24 Range/Units 06:58 07:35 WBC 9.5 (4.8-10.8) X10*3/uL RBC 4.74 (4.20-5.50) X10*6/uL Hgb 13.1 (12.0-16.0) g/dl Hct 37.9 (37.0-47.0) % MCV 80.0 (80.0-98.0) fL MCH 27.6 (27.0-33.0) pg MCHC 34.6 (31.0-35.0) g/dl RDW 13.1 (11.0-16.0) % Plt Count 335 (160-400) X10*3/uL MPV 9.6 (9.4-12.3) fL Immature Gran % (Auto) 0.3 (0.0-0.4) % Neut % (Auto) 82.0 H (45-73) % Lymph % (Auto) 13.4 L (20-40) % [place] % (Auto) 3.7 (2-11) % Eos % (Auto) 0.3 (0-4) % Baso % (Auto) 0.3 (0-2) % Lymph # (Auto) 1.3 (1.2-4.9) X10*3/uL [place] # (Auto) 0.4 (0.1-1.2) X10*3/uL Eos # (Auto) 0.0 (0.0-0.4) X10*3/uL Baso # (Auto) 0.0 (0.0-0.2) X10*3/uL Abs Immat Gran (auto) 0.03 (0.00-0.03) X10*3/uL Absolute Neuts (auto) 7.8 (2.0-8.3) x10*3/uL Absolute Nucleated RBC 0.000 (0.0-0.012) X10*3/uL Nucleated RBC % (auto) 0.0 (0.0-0.2) /100WBC Sodium 139 (135-145) mmol/L Potassium 4.2 (3.3-5.1) mmol/L Chloride 106 (96-108) mmol/L Carbon Dioxide 23 (22-29) mmol/L Anion Gap 14 (12-20) BUN 14 (9-16) mg/dL Creatinine 0.64 (0.5-1.4) mg/dL Estim Creat Clear Calc 149.1 Estimated GFR > 60 Random Glucose 235 H (60-115) mg/dL Calcium 9.3 (8.4-10.2) mg/dL Total Bilirubin 0.5 (0.0-1.0) mg/dL AST 22 (5-31) U/L ALT 26 (0-31) U/L Alkaline Phosphatase 83 (39-117) U/L Total Protein 7.2 (6.5-8.0) g/dL Albumin 4.3 (3.5-5.0) g/dL Lipase 37 (8-78) U/L Beta HCG, Quant < 2 mIU/mL Urine Color Yellow Urine Appearance Clear Urine pH 5.5 (5.0-9.0) Ur Specific Ortley >= 1.030 H (1.005-1.025) Urine Protein Trace (Neg-Trace) mg/dL Urine Glucose (UA) >=1000 H (Negative) mg/dL Urine Ketones 15 (Negative) mg/dL Urine Blood Large (3+) H (Negative) Urine Nitrite Negative (Negative) Ur Leukocyte Esterase Negative (Negative) Urine RBC 6-10 H (0-2) /HPF Urine WBC 6-10 H (0-5) /HPF Ur Squamous Epith Cells 3-5 (0-2) /HPF Urine Bacteria 2+ (None Seen) Hyaline Casts 0-2 (0-2) /LPF Independent Interpretation I performed an independent interpretation of an: CT Scan ( abdomen pelvis:Cholelithiasis without cholecystitis. The liver measures 16.5 cm in length along the midclavicular line. No focal hepatic masses. No urolithiasis or urinary obstruction. Other abdominal solid organs are unremarkable. No bowel obstruction. Normal appendix. Pelvic structures unremarka) Radiology Impression Discussion of test interpretation with radiology: I have reviewed the radiologist's reading. Medications Administered Discontinued Medications Generic Name Dose Route Start Last Admin Trade Name Freq PRN Reason Stop Dose Admin Lactated Ringer's 1,000 mls @ 999 mls/hr 10/06/24 07:15 10/06/24 09:11 Lr IV 10/06/24 08:15 Infused .Q1H1M DANY Infusion Ketorolac Tromethamine 15 mg 10/06/24 07:11 10/06/24 07:30 Ketorolac Tromethamine 15 Mg/Ml Vial IVPUSH 10/06/24 07:12 15 mg ONCE ONE Administration Morphine Sulfate 2 mg 10/06/24 07:11 10/06/24 07:30 Morphine Sulfate 2 Mg/Ml Cartridge IVPUSH 10/06/24 07:12 2 mg ONCE ONE Administration Protocol Ondansetron HCl 4 mg 10/06/24 07:11 10/06/24 07:30 Ondansetron Hcl 4 Mg/2 Ml Vial IVPUSH 10/06/24 07:12 4 mg ONCE ONE Administration Discharge Plan Discharge Clinical Impression: Myofascial low back pain Patient Disposition: Home, Self-Care Instructions: Acute Low Back Pain (ED) Prescriptions: New naproxen 500 mg tablet 500 mg PO BID PRN (Reason: pain) Qty: 20 0RF cyclobenzaprine 10 mg tablet 10 mg PO TID PRN (Reason: muscle spasm) Qty: 14 0RF Print Language: Nepali
[2024-10-06 07:17] LABS: Basophils Percent Auto 0.3 % (0-2); Eosinophils Percent Auto 0.3 % (0-4); Hematocrit 37.9 % (37.0-47.0); Hemoglobin 13.1 g/dl (12.0-16.0); Imm Gran Abs Auto 0.03 X10*3/uL (0.00-0.03); Imm Gran Pct Auto 0.3 % (0.0-0.4); Lymphocytes Absolute Auto 1.3 X10*3/uL (1.2-4.9); Lymphocytes Percent Auto 13.4 % (20-40); Mean Corpuscular HGB Conc 34.6 g/dl (31.0-35.0); Mean Corpuscular Hemoglobin 27.6 pg (27.0-33.0); Mean Platelet Volume 9.6 fL (9.4-12.3); Monocytes Absolute Auto 0.4 X10*3/uL (0.1-1.2); Monocytes Percent Auto 3.7 % (2-11); Neutrophils Absolute Auto 7.8 x10*3/uL (2.0-8.3); Platelet Count 335 X10*3/uL (160-400); Red Blood Count 4.74 X10*6/uL (4.20-5.50); Red Cell Distribution Width 13.1 % (11.0-16.0); White Blood Count 9.5 X10*3/uL (4.8-10.8)
[2024-10-06 07:28] LABS: Alanine Aminotransferase 26 U/L (0-31); Albumin Level 4.3 g/dL (3.5-5.0); Alkaline Phosphatase 83 U/L (39-117); Anion Gap 14 (12-20); Aspartate Amino Transferase 22 U/L (5-31); Bilirubin Total 0.5 mg/dL (0.0-1.0); Blood Urea Nitrogen 14 mg/dL (9-16); Calcium 9.3 mg/dL (8.4-10.2); Carbon Dioxide 23 mmol/L (22-29); Chloride 106 mmol/L (96-108); Creatinine Clr Calc Pharmacy 149.1; Estimated Glomerular Filt Rate > 60; Glucose Random 235 mg/dL (60-115); Lipase 37 U/L (8-78); Potassium 4.2 mmol/L (3.3-5.1); Sodium 139 mmol/L (135-145); Total Protein 7.2 g/dL (6.5-8.0)
[2024-10-06] MEDS: Ketorolac Tromethamine 15 MG/ML VIAL IVPUSH (07:30)
[2024-10-06] MEDS: ondansetron HCL 4 MG/2 ML VIAL IVPUSH (07:30)
[2024-10-06] MEDS: Morphine Sulfate 2 MG/ML CARTRIDGE IVPUSH (07:30)
[2024-10-06] MEDS: Lactated Ringers 1,000 ML 999 ML IV (07:32)
[2024-10-06 07:41] LABS: Appearance Urine Clear; Color Urine Yellow; Glucose Urine UA >=1000 mg/dL (Negative); Leukocyte Esterase Urine Negative (Negative); Nitrite Urine Negative (Negative); PH 5.5 (5.0-9.0); Specific Gravity - Urine >= 1.030 (1.005-1.025); UMIC TRIGGER UACC YES; Urine Blood Large (3+) (Negative); Urine Ketones 15 mg/dL (Negative); Urine Protein Trace mg/dL (Neg-Trace)
[2024-10-06 07:46] LABS: Bacteria Urine 2+ (None Seen); Hyaline Casts Urine 0-2 /LPF (0-2); UACC Culture Trigger YES
[2024-10-06 07:47] VITALS: BP 140/93; PULSE 68; RESP 18; TEMP 36.4; O2SAT 98
[2024-10-06 07:56] LABS: HCG Quantitative < 2 mIU/mL
[2024-10-06 11:55] VITALS: BP 122/72; PULSE 62; RESP 16; TEMP 36.6; O2SAT 97
[2024-10-06] MEDS: Acetaminophen 1,000 MG/100 ML PIGGYBACK 400 MG IV (12:01)
[2024-10-06 12:45] VITALS: BP 122/72; PULSE 62; RESP 16; TEMP 36.6; O2SAT 97
== END 2024-10-06 12:45 | disposition home or self-care (01) ==
PROVIDERS: Emergency Provider Emergency Medicine
DX: M79.18 Myalgia, other site (principal); R10.9 Unspecified abdominal pain; M54.50 Low back pain, unspecified; R10.31 Right lower quadrant pain
CPT/HCPCS: 36415; 74176; 80053; 81001; 83690; 84702; 85025; 87086; 96361; 96374; 96375; 99284; J0131; J1885; J2270; J2405; J7120

== ENCOUNTER → 2024-10-06 07:11 | Outpatient (BNV) | payer OTHER, SELFPAY | PROVIDERS: Emergency Provider Emergency Medicine; Visit Provider Radiology Diagnostic Radiology | DX: K80.20 Calculus of gallbladder without cholecystitis without obstruction (principal) | CPT/HCPCS: 74176 ==